=== PATIENT | female | born 1960 | race American Indian/Alaskan Native ===

== ENCOUNTER 2017-11-24 12:41 | Emergency (ER) | payer MEDICAID ==
[2017-11-24] MEDS ORDERED: Ketorolac 30 MG/ML SDV ONE (13:09)
[2017-11-24] MEDS ORDERED: Ketorolac 30 MG/ML SDV IM ONE (13:09)
--- NOTE | 2017-11-24 13:13 | EDM.PDOC ---
ED HPI GENERAL MEDICAL PROBLEM - General Chief Complaint: Skin Complaint Stated Complaint: Abscess Time Seen by Provider: 11/24/17 12:55 Source of Information: Reports: Patient History Limitations: Reports: No Limitations - History of Present Illness INITIAL COMMENTS - FREE TEXT/NARRATIVE: Nelia comes to [facility] ED with multiple lesions on the scalp and neck that have been increasing in size, tenderness, and number over the past week. This morning, her face was also swollen and she had difficulty eyelids to see. There is no fever, chills or sweats. She is on Prednisone for Chronic RA. Her clinical exam is consistent with multiple carbuncles. I discussed case with Surgeon business solutions director and he suggested transfer to [facility] for Surgery and ID consults. Patient is in agreement. - Related Data Allergies Allergy/AdvReac Type Severity Reaction Status Date / Time doxycycline Allergy Mild unknown Verified 11/24/17 21:49 Penicillins Allergy Mild Hives Verified 11/24/17 21:49 tramadol Allergy Mild unknown Verified 11/24/17 21:49 venom-honey bee Allergy Mild Anaphylactic Verified 11/24/17 21:49 [bee venom (honey bee)] Shock Home Meds: Home Meds Ranitidine [Zantac] 150 mg PO DAILY PRN 01/25/14 [History] amLODIPine [Norvasc] 10 mg PO DAILY 01/25/14 [History] Aspirin [Aspirin EC] 81 mg PO DAILY 03/26/16 [History] predniSONE [Prednisone] 15 mg PO DAILY 03/26/16 [History] cloNIDine [Catapres] 0.1 mg PO Q12HR PRN #14 tablet 03/27/16 [Rx] Albuterol Sulfate 2 puff INH QID PRN 08/03/16 [History] valACYclovir HCl [valACYclovir] 1,000 mg PO DAILY 08/03/16 [History] Levothyroxine Sodium [Synthroid] 75 mcg PO DAILY 11/24/17 [History] Past Medical History - Past Health History Medical/Surgical History: Denies Medical/Surgical History Cardiovascular History: Reports: Hypertension Gastrointestinal History: Reports: GERD Musculoskeletal History: Reports: RA Psychiatric History: Reports: Addiction Social & Family History - Family History Musculoskeletal: Reports: Arthritis - Tobacco Use Smoking Status *Q: Former Smoker Years of Tobacco use: 20 Used Tobacco, but Quit: Yes Month/Year Tobacco Last Used: november - Alcohol Use Days Per Week of Alcohol Use: 0 - Recreational Drug Use Recreational Drug Use: No Recreational Drug Type: Reports: Morphine ED ROS GENERAL - Review of Systems Review Of Systems: ROS reveals no pertinent complaints other than HPI. ED EXAM, SKIN/RASH Exam: See Below Exam Limited By: No Limitations General Appearance: Alert, WD/WN, Mild Distress Eye Exam: Bilateral Eye: EOMI, Normal Inspection (facial swelling including eyelids), PERRL Ears: Normal External Exam Nose: Normal Inspection Throat/Mouth: Normal Inspection Head: Facial Swelling, Other (multiple complex abscesses of the scalp) Neck: Full Range of Motion, Lymphadenopathy (L), Other (multiple abscesses of neck) Respiratory/Chest: Lungs Clear Cardiovascular: Regular Rate, Rhythm Back Exam: Normal Inspection Extremities: Normal Inspection Neurological: Alert, Oriented, CN II-XII Intact, Normal Gait, No Motor/Sensory Deficits Psychiatric: Normal Affect, Normal Mood Skin: Warm, Dry, Other (multiple abscesses of scalp and neck) Course - Vital Signs Text/Narrative:: I discussed case with dynamics ax consultant surgeon, who suggested referral to [facility]. I spoke with [facility] ED about case and he accepted patient for surgical management. Last Recorded V/S: Last Vital Signs Temp 36.8 C 11/24/17 13:15 Pulse 104 H 11/24/17 13:15 Resp 14 11/24/17 13:15 BP 157/72 H 11/24/17 13:15 Pulse Ox 100 11/24/17 13:15 - Orders/Labs/Meds Meds: Medications Discontinued Medications Generic Name Dose Route Start Last Admin Trade Name Rico PRN Reason Stop Dose Admin Ketorolac Tromethamine 30 mg 11/24/17 13:09 11/24/17 13:13 Toradol IM 11/24/17 13:10 30 mg ONETIME ONE Administration Ketorolac Tromethamine Confirm 11/24/17 13:09 11/24/17 20:30 Toradol Administered 11/24/17 13:10 Not Given Dose 30 mg .ROUTE .STK-MED ONE Departure - Departure Time of Disposition: 12:45 Disposition: DC/Tfer to Other 70 Condition: Fair Clinical Impression: Carbuncle of scalp - Discharge Information Referrals: Kenn Cheng MD [Primary Care Provider] - Forms: ED Department Discharge Care Plan Goals: Report directly to the Emergency Room at [facility] in [place]. Dr. Orozco is aware that you are coming. - Problem List & Annotations (1) Carbuncle of scalp SNOMED Code(s): 14009697 Code(s): L02.831 - CARBUNCLE OF HEAD [ANY PART, EXCEPT FACE] Status: Acute Annotation/Comment:: Nelia has multiple carbuncles of the scalp and neck. She will be referred to [facility] ED for surgical and infectious disease consultation. She was administered Toradol 30 mg IM before departure for comfort. - Problem List Review Problem List Initiated/Reviewed/Updated: Yes - Assessment/Plan Plan: Follow up with PCP.
[2017-11-24 21:13] VITALS: BP 157/72
== END 2017-11-24 13:35 | disposition other institution (70) ==
LOC: FB.ED 12:41
DX: L02.831 Carbuncle of head [any part, except face] (principal); I10 Essential (primary) hypertension; Z88.1 Allergy status to other antibiotic agents; Z88.0 Allergy status to penicillin; Z91.030 Bee allergy status; Z88.5 Allergy status to narcotic agent; Z79.899 Other long term (current) drug therapy; Z79.82 Long term (current) use of aspirin; Z87.891 Personal history of nicotine dependence
CPT/HCPCS: 96372; 99283; J1885

== ENCOUNTER 2017-11-26 21:02 | Inpatient (IN) | payer MEDICAID ==
[2017-11-26] MEDS ORDERED: Potassium Chloride 20 MEQ Tab.ER PO ONE (22:36)
[2017-11-26] MEDS ORDERED: Ondansetron 4 MG/2 ML SDV IVPUSH ONE (22:36)
[2017-11-26] MEDS ORDERED: Morphine 4 MG/ML Syringe IVPUSH ONE (22:38)
[2017-11-26] MEDS ORDERED: Acetaminophen 500 MG Tab PO ONE (22:38)
[2017-11-26] MEDS ORDERED: Ketorolac 30 MG/ML SDV IVPUSH ONE (22:39)
[2017-11-26] MEDS ORDERED: Sodium Chloride 0.45% with KCl 1,000 ML IV SCH (22:45)
--- NOTE | 2017-11-26 22:48 | EDM.PDOC ---
ED HPI GENERAL MEDICAL PROBLEM - General Chief Complaint: Headache Stated Complaint: PAIN AFTER SURGERY Time Seen by Provider: 11/26/17 22:00 Source of Information: Reports: Patient History Limitations: Reports: No Limitations - History of Present Illness INITIAL COMMENTS - FREE TEXT/NARRATIVE: c/o scalp pain pt in ED 2d ago here, had extensive carbuncles on scalp, transferred to [facility], had I&D by surgeon that night culture growing out Staph, final report pending WBC 23k from 2d ago, then 17k yesterday and now 13k today tx with jenniffer, received last dose at noon today, plan was to change her to oral meds and d/c her apparently tomorrow however pt left AMA this afternoon after an argument with her daughter who did not have a ride back to [place], the hospital was going to throw out the daughter but the pt says she felt sorry for her and left AMA to drive her pt back pt lives with a granddaughter (not her daughter) pain in scalp has gotten worse tonight, pt did not get an Rx for oral antibiotics pt says most of her pain is at the back of her neck where she appears to have another abscess which will likely need to be drained by surgeon tomorrow will admit pt to observation bed for IV antbxs (pending final culture result tomorrow), pain management and surgical consult in AM pt agrees head and neck Pain Score (Numeric/FACES): 10 - Related Data Allergies Allergy/AdvReac Type Severity Reaction Status Date / Time doxycycline Allergy Mild unknown Verified 11/26/17 21:21 Penicillins Allergy Mild Hives Verified 11/26/17 21:21 tramadol Allergy Mild unknown Verified 11/26/17 21:21 venom-honey bee Allergy Mild Anaphylactic Verified 11/26/17 21:21 [bee venom (honey bee)] Shock Home Meds: Home Meds amLODIPine [Norvasc] 10 mg PO DAILY 01/25/14 [History] Aspirin [Aspirin EC] 81 mg PO DAILY 03/26/16 [History] predniSONE [Prednisone] 15 mg PO DAILY 03/26/16 [History] Albuterol Sulfate 2 puff INH QID PRN 08/03/16 [History] Levothyroxine Sodium [Synthroid] 75 mcg PO DAILY 11/24/17 [History] ClonazePAM [KlonoPIN] 5 mg PO BID 11/26/17 [History] Past Medical History - Past Health History Medical/Surgical History: Denies Medical/Surgical History Cardiovascular History: Reports: Hypertension Gastrointestinal History: Reports: GERD Musculoskeletal History: Reports: RA Psychiatric History: Reports: Addiction Endocrine/Metabolic History: Reports: Other (See Below) Other Endocrine/Metabolic History: Thyroid problems, not specified. Dermatologic History: Reports: Other (See Below) Other Dermatologic History: Abscess on top of head. - Past Surgical History Female Surgical History: Reports: Section Social & Family History - Family History Family Medical History: Noncontributory Musculoskeletal: Reports: Arthritis - Tobacco Use Smoking Status *Q: Current Every Day Smoker Years of Tobacco use: 10 Packs/Tins Daily: 1 Used Tobacco, but Quit: Yes Month/Year Tobacco Last Used: november - Caffeine Use Caffeine Use: Reports: Coffee - Alcohol Use Days Per Week of Alcohol Use: 0 - Recreational Drug Use Recreational Drug Use: No Recreational Drug Type: Reports: Morphine ED ROS GENERAL - Review of Systems Review Of Systems: See Below Constitutional: Reports: No Symptoms HEENT: Reports: No Symptoms Respiratory: Reports: No Symptoms Cardiovascular: Reports: No Symptoms Endocrine: Reports: No Symptoms GI/Abdominal: Reports: No Symptoms : Reports: No Symptoms Musculoskeletal: Reports: No Symptoms Skin: Reports: Wound Neurological: Reports: Headache Psychiatric: Reports: No Symptoms Hematologic/Lymphatic: Reports: No Symptoms Immunologic: Reports: No Symptoms ED EXAM, SKIN/RASH Exam: See Below Exam Limited By: No Limitations General Appearance: Alert, WD/WN, Mild Distress Eye Exam: Bilateral Eye: Normal Inspection Nose: Normal Inspection, Normal Mucosa, No Blood Throat/Mouth: Normal Inspection, Normal Voice, No Airway Compromise Head: Other (large open wound in midline anteriorly, ~15 cm in length, dry packing inside wound, several other abscess were drained with no packing, scalp dry, hair short, no moisture or active drainage, additional packing laid on scalp was removed as was the stocking cap which was slightly adherent to scalp and which was painful, at neck posteriorly in midline is a 2 x 2 x 0.5 cm red swollen tender area that appears flocculent with an additional 1 x 1 x 0.25 cm inferiorly, no discrete LNs) Neck: Supple Respiratory/Chest: No Respiratory Distress, Lungs Clear, Normal Breath Sounds, No Accessory Muscle Use, Chest Non-Tender Cardiovascular: Normal Peripheral Pulses, Regular Rate, Rhythm, No Edema, No Gallop, No Rub, Other (slight tachy with HR 105, 2/6 BERTRAND at LSB, quiet precordium) GI/Abdominal: Soft, Non-Tender, No Distention Back Exam: Normal Inspection, Full Range of Motion, NT Extremities: Normal Inspection, Normal Range of Motion, Non-Tender, No Pedal Edema Neurological: Alert, Oriented, CN II-XII Intact, Normal Cognition, No Motor/ Sensory Deficits Psychiatric: Normal Affect, Normal Mood Skin: Warm, Dry, Intact, Normal Color, No Rash Lymphatic: No Adenopathy Course - Vital Signs Last Recorded V/S: Last Vital Signs Temp 36.7 C 11/26/17 21:02 Pulse 107 H 11/26/17 21:02 Resp 20 11/26/17 21:02 BP 143/84 H 11/26/17 21:02 Pulse Ox 100 11/26/17 21:02 - Orders/Labs/Meds Orders: Active Orders 24 hr Category Date Time Status Acetaminophen [Tylenol Extra Strength] Med 11/26/17 22:38 Once 1,000 mg PO ONETIME ONE Ketorolac [Toradol] Med 11/26/17 22:39 Once 30 mg IVPUSH ONETIME ONE Morphine Med 11/26/17 22:38 Once 4 mg IVPUSH ONETIME ONE Ondansetron [Zofran] Med 11/26/17 22:36 Once 4 mg IVPUSH ONETIME ONE Potassium Chloride [Klor-Con M20] Med 11/26/17 22:36 Once 40 meq PO ONETIME ONE Sodium Chloride 0.45% with KCl 20 mEq @ 75 mL/Hr (1000 Med 11/26/17 22:45 Ordered mL) Sodium Chloride 0.45% with KCl [1/2 NS with 20 mEq KCl] 1,000 ml IV ASDIRECTED Medication Orders Acetaminophen (Tylenol Extra Strength) 1,000 mg PO ONETIME ONE Stop: 11/26/17 22:39 Potassium Chloride/Sodium Chloride (1/2 Ns With 20 Meq Kcl) 1,000 mls @ 75 mls/ hr IV ASDIRECTED DOMINIK Ketorolac Tromethamine (Toradol) 30 mg IVPUSH ONETIME ONE Stop: 11/26/17 22:40 Morphine Sulfate (Morphine) 4 mg IVPUSH ONETIME ONE Stop: 11/26/17 22:39 Ondansetron HCl (Zofran) 4 mg IVPUSH ONETIME ONE Stop: 11/26/17 22:37 Potassium Chloride (Klor-Con M20) 40 meq PO ONETIME ONE Stop: 11/26/17 22:37 Labs: Laboratory Tests 11/26/17 11/26/17 Range/Units 21:35 21:35 WBC 13.9 H (4.5-12.0) X10-3/uL RBC 4.31 (3.23-5.20) x10(6)uL Hgb 12.3 (11.5-15.5) g/dL Hct 36.7 (30.0-51.3) % MCV 85.0 (80-96) fL MCH 28.6 (27.7-33.6) pg MCHC 33.6 (32.2-35.4) g/dL RDW 13.8 (11.5-15.5) % Plt Count 455 H (125-369) X10(3)uL MPV 6.9 L (7.4-10.4) fL Neut % (Auto) 71.3 (46-82) % Lymph % (Auto) 18.8 (13-37) % Granite % (Auto) 5.3 (4-12) % Eos % (Auto) 1 (1.0-5.0) % Baso % (Auto) 4 H (0-2) % Neut # (Auto) 9.9 H (1.6-8.3) # Lymph # (Auto) 2.6 (0.6-5.0) # Granite # (Auto) 0.7 (0.0-1.3) # Eos # (Auto) 0.2 (0.0-0.8) # Baso # (Auto) 0.5 H (0.0-0.2) # Sodium 140 (135-145) mmol/L Potassium 3.3 L (3.5-5.3) mmol/L Chloride 101 (100-110) mmol/L Carbon Dioxide 31 (21-32) mmol/L BUN 14 (7-18) mg/dL Creatinine 0.9 (0.55-1.02) mg/dL Est Cr Clr Drug Dosing 50.48 mL/min Estimated GFR (MDRD) > 60 (>60) BUN/Creatinine Ratio 15.6 (9-20) Glucose 161 H (80-116) mg/dL Calcium 8.5 L (8.6-10.2) mg/dL Total Bilirubin 0.2 (0.1-1.3) mg/dL AST 14 (5-25) IU/L ALT 21 (12-36) U/L Alkaline Phosphatase 82 (56-112) IU/L Total Protein 6.7 (6.0-8.0) g/dL Albumin 2.7 L (3.5-5.2) g/dL Globulin 4.0 g/dL Albumin/Globulin Ratio 0.7 Meds: Medications Generic Name Dose Route Start Last Admin Trade Name Freq PRN Reason Stop Dose Admin Acetaminophen 1,000 mg 11/26/17 22:38 Tylenol Extra Strength PO 11/26/17 22:39 ONETIME ONE Potassium Chloride/Sodium Chloride 1,000 mls @ 75 mls/hr 11/26/17 22:45 1/2 Ns With 20 Meq Kcl IV ASDIRECTED [facility] Ketorolac Tromethamine 30 mg 11/26/17 22:39 Toradol IVPUSH 11/26/17 22:40 ONETIME ONE Morphine Sulfate 4 mg 11/26/17 22:38 Morphine IVPUSH 11/26/17 22:39 ONETIME ONE Ondansetron HCl 4 mg 11/26/17 22:36 Zofran IVPUSH 11/26/17 22:37 ONETIME ONE Potassium Chloride 40 meq 11/26/17 22:36 Klor-Con M20 PO 11/26/17 22:37 ONETIME ONE Departure - Departure Time of Disposition: 22:52 Disposition: Refer to Observation Condition: Good Clinical Impression: Carbuncle of scalp, Carbuncle of neck, Staphylococcal infection of skin, Immunosuppressed status, Severe pain, Hypokalemia - Discharge Information Referrals: Kenn Cheng MD [Primary Care Provider] - - My Orders Last 24 Hours: My Active Orders 11/26/17 22:36 Ondansetron [Zofran] 4 mg IVPUSH ONETIME ONE Potassium Chloride [Klor-Con M20] 40 meq PO ONETIME ONE 11/26/17 22:38 Acetaminophen [Tylenol Extra Strength] 1,000 mg PO ONETIME ONE Morphine 4 mg IVPUSH ONETIME ONE 11/26/17 22:39 Ketorolac [Toradol] 30 mg IVPUSH ONETIME ONE 11/26/17 22:45 Sodium Chloride 0.45% with KCl 20 mEq @ 75 mL/Hr (1000 mL) Sodium Chloride 0.45 % with KCl [1/2 NS with 20 mEq KCl] 1,000 ml IV ASDIRECTED - Assessment/Plan Last 24 Hours: My Active Orders 11/26/17 22:36 Ondansetron [Zofran] 4 mg IVPUSH ONETIME ONE Potassium Chloride [Klor-Con M20] 40 meq PO ONETIME ONE 11/26/17 22:38 Acetaminophen [Tylenol Extra Strength] 1,000 mg PO ONETIME ONE Morphine 4 mg IVPUSH ONETIME ONE 11/26/17 22:39 Ketorolac [Toradol] 30 mg IVPUSH ONETIME ONE 11/26/17 22:45 Sodium Chloride 0.45% with KCl 20 mEq @ 75 mL/Hr (1000 mL) Sodium Chloride 0.45 % with KCl [1/2 NS with 20 mEq KCl] 1,000 ml IV ASDIRECTED
[2017-11-26] MEDS ORDERED: Morphine 2 MG/ML Syringe IVPUSH PRN (23:01)
[2017-11-26] MEDS ORDERED: Ondansetron 4 MG/2 ML SDV IV PRN (23:01)
[2017-11-26] MEDS ORDERED: Albuterol 0.083% 2.5 MG/3 ML Neb Soln INH PRN (23:09)
[2017-11-26] MEDS ORDERED: Ketorolac 30 MG/ML SDV IVPUSH SCH (23:15)
[2017-11-26] MEDS: Acetaminophen 500 MG Tab PO SCH (23:28)
[2017-11-26] MEDS: Enoxaparin 40 MG/0.4 ML Syringe SUBCUT SCH (23:38)
[2017-11-27] MEDS: Acetaminophen 500 MG Tab PO SCH ×2 (05:48→11:14)
[2017-11-27] MEDS: Ketorolac 30 MG/ML SDV IVPUSH SCH ×2 (05:48→11:14)
[2017-11-27] MEDS: Clindamycin in 0.9 % Sod Chlor 600 MG/50 ML BAG IV SCH (08:20)
[2017-11-27] MEDS ORDERED: ClonazePAM 1 MG Tab PO SCH (09:00)
--- NOTE | 2017-11-27 09:17 | PCM.HP ---
H&P History of Present Illness - General Date of Service: 11/27/17 Admit Problem/Dx: Admission Diagnosis/Problem Admission Diagnosis/Problem Carbuncle Source of Information: Patient, Old Records, Provider History Limitations: Reports: No Limitations - History of Present Illness Initial Comments - Free Text/Narative: Patient is a 57-year-old female with a history of steroid-dependent rheumatoid arthritis currently on prednisone 15 mg daily who about a week and a half prior to admission started to develop some pimple-like lesions on her scalp. She had used a sharp comb and felt like it injured her scalp and then started to develop these pus filled lesions that were like pimples. They were quite large and got to the point where she was bumping them and they were draining. On 11/23 she started to develop fevers, chills, and sweats. She had some facial swelling and when she woke up in the morning of the her face was so swollen she could hardly see out of her eyes. She had no nausea or vomiting, no diarrhea. She just felt very weak and ill. She fell asleep that afternoon and didn't wake up until 4 in the morning on the . At that point she finally realized that she was very sick and needed to come in so tried to find a ride to the emergency department. On the she presented to our emergency room here at [facility], was seen and evaluated for multiple abscesses on the scalp and facial cellulitis. She was transferred to [facility] for surgical management. White count was 23,000 at that time. She had surgical intervention of the large carbuncles on her scalp and cultures showed staph aureus which was pansensitive. She had been initially treated there with IV vancomycin and continued IV vancomycin until 11/26 when because of issues with her daughter, who was hounding her that she needed to leave the hospital in order to take her home , she finally left [place] on late Monday afternoon, 11/26/17. After she got her daughter home she found a ride to the emergency room and came back into our facility knowing that she needed further antibiotic treatment. She was admitted for further management of her soft tissue infection, facial skin infection, and carbuncles. She was started on clindamycin 600 mg IV. She's had no further fevers, chills, sweats. No point did she have any chest pain, shortness of breath, nausea, vomiting, or diarrhea. She does have moderate pain in the scalp where she had surgery but her facial swelling is almost gone. She has a couple of new lesions that recently appeared on the back of her neck. Past medical history: #1 rheumatoid arthritis, steroid dependent. She is on prednisone 50 mg daily. Had planned to start Enbrel in the past but never did because of social issues. #2 mental health history includes depression, anxiety, history of panic disorder , question of history of previous alcohol dependence, currently on a pain contract, significant social stressors. #3 asthma #4 hypothyroidism #5 hypertension #6 history of H. pylori and esophageal reflux #7 insomnia Social history: Patient lives in [place]. She has a daughter, Isai, who is the one who caused so much trouble for her in [facility]. She would like her not to be able to visit while she is here. She has full-time custody of Isai's daughter Gema who is 5 years old and in preschool. Child is currently being cared for by her maternal grandfather while the patient is in the hospital. She has a son who lives in [facility]. She smokes about a half to "a pack of cigarettes per day. Cigarette use is greatly increased when Isai is around. She denies alcohol use or IV or illegal drug use. She is single and she and Gema live together. Family history: Patient's mother at 84 from complications after falling and breaking her hip. She had hypothyroidism, cataracts, and a history of coronary artery disease although no heart problems per se. The patient's father in his 90s after a stroke and had diabetes mellitus. The patient had 4 sisters, 3 of whom are . One sister at the age of 13 of leukemia, one sister of complications of lupus at the age of 48, and her other sister of complications of rheumatoid arthritis at the age of 48. She has a sister who is still alive who lives in [place]. She had 2 brothers both of whom are . One brother at 57 from complications of diabetes and kidney failure. One brother in his 30s from alcoholism. He was apparently assaulted and from injuries related to that. head and neck Pain Score (Numeric/FACES): 10 - Related Data Allergies/Adverse Reactions: Allergies Allergy/AdvReac Type Severity Reaction Status Date / Time doxycycline Allergy Mild unknown Verified 11/26/17 21:21 Penicillins Allergy Mild Hives Verified 11/26/17 21:21 tramadol Allergy Mild unknown Verified 11/26/17 21:21 venom-honey bee Allergy Mild Anaphylactic Verified 11/26/17 21:21 [bee venom (honey bee)] Shock Home Medications: Home Meds amLODIPine [Norvasc] 10 mg PO DAILY 01/25/14 [History] Aspirin [Aspirin EC] 81 mg PO DAILY 03/26/16 [History] predniSONE [Prednisone] 15 mg PO DAILY 03/26/16 [History] Albuterol Sulfate 2 puff INH QID PRN 08/03/16 [History] Levothyroxine Sodium [Synthroid] 75 mcg PO DAILY 11/24/17 [History] ClonazePAM [KlonoPIN] 5 mg PO BID 11/26/17 [History] Past Medical History - Past Health History Medical/Surgical History: Denies Medical/Surgical History HEENT History: Reports: Impaired Vision Other HEENT History: wears glasses but sts they don't help Cardiovascular History: Reports: Hypertension Respiratory History: Reports: COPD Gastrointestinal History: Reports: GERD [employer] History: Reports: Musculoskeletal History: Reports: RA, Other (See Below) Other Musculoskeletal History: has a limp due to right hip disc from RA Psychiatric History: Reports: Addiction Endocrine/Metabolic History: Reports: Other (See Below) Other Endocrine/Metabolic History: Thyroid problems, not specified. Dermatologic History: Reports: Other (See Below) Other Dermatologic History: Abscess on top of head. - Past Surgical History Respiratory Surgical History: Reports: None Female Surgical History: Reports: Section Social & Family History - Family History Family Medical History: Noncontributory Musculoskeletal: Reports: Arthritis - Tobacco Use Smoking Status *Q: Current Every Day Smoker Years of Tobacco use: 20 Packs/Tins Daily: 1 Used Tobacco, but Quit: Yes Month/Year Tobacco Last Used: november Tobacco Use Comment: Wants a nicotine patch Second Hand Smoke Exposure: No - Caffeine Use Caffeine Use: Reports: Coffee Other Caffeine Use: 2 per day - Alcohol Use Days Per Week of Alcohol Use: 0 - Recreational Drug Use Recreational Drug Use: No Recreational Drug Type: Reports: Morphine H&P Review of Systems - Review of Systems: Review Of Systems: ROS reveals no pertinent complaints other than HPI. Exam - Exam Exam: See Below - Vital Signs Vital Signs: Last Vital Signs Temp 36.7 C 11/27/17 05:45 Pulse 67 11/27/17 05:45 Resp 16 11/27/17 05:45 BP 134/77 11/27/17 05:45 Pulse Ox 96 11/27/17 05:45 Weight: 44.407 kg - Exam General: Alert, Oriented, Cooperative HEENT: PERRLA, Conjunctiva Clear, Mucosa Moist & [employer] Neck: Supple Lungs: Clear to Auscultation, Normal Respiratory Effort Cardiovascular: Regular Rate, Regular Rhythm, Normal S1, Normal S2 GI/Abdominal Exam: Normal Bowel Sounds, Soft, Non-Tender, No Distention Extremities: No Pedal Edema Skin: Other (Patient has a packed scalp wound on the anterior scalp about 4-5 cm in length. It has no pus drainage but a yellow base. Multiple small scattered open areas of deroofed carbuncles surrounding. On the posterior scalp and nape of neck she has 2 lesions, one in the hairline which is swollen and tender, one below which still has a yellow head on it. Her eyelids are slightly swollen but no other facial swelling. She has an area under the chin on the upper chest which is slightly erythematous and swollen, but nontender to touch. ) Neuro Extensive - Mental Status: Alert, Oriented x3, Normal Mood/Affect Psychiatric: Alert - Patient Data Lab Results Last 24 hrs: Laboratory Results - last 24 hr 11/26/17 11/26/17 11/27/17 Range/Units 21:35 21:35 06:10 WBC 13.9 H 10.1 (4.5-12.0) X10-3/uL RBC 4.31 4.05 (3.23-5.20) x10(6)uL Hgb 12.3 11.6 (11.5-15.5) g/dL Hct 36.7 34.4 (30.0-51.3) % MCV 85.0 85.0 (80-96) fL MCH 28.6 28.6 (27.7-33.6) pg MCHC 33.6 33.6 (32.2-35.4) g/dL RDW 13.8 13.6 (11.5-15.5) % Plt Count 455 H 449 H (125-369) X10(3)uL MPV 6.9 L 6.9 L (7.4-10.4) fL Neut % (Auto) 71.3 66.6 (46-82) % Lymph % (Auto) 18.8 24.0 (13-37) % Bond % (Auto) 5.3 6.0 (4-12) % Eos % (Auto) 1 3 (1.0-5.0) % Baso % (Auto) 4 H 1 (0-2) % Neut # (Auto) 9.9 H 6.7 (1.6-8.3) # Lymph # (Auto) 2.6 2.4 (0.6-5.0) # Bond # (Auto) 0.7 0.6 (0.0-1.3) # Eos # (Auto) 0.2 0.3 (0.0-0.8) # Baso # (Auto) 0.5 H 0.1 (0.0-0.2) # Sodium 140 (135-145) mmol/L Potassium 3.3 L (3.5-5.3) mmol/L Chloride 101 (100-110) mmol/L Carbon Dioxide 31 (21-32) mmol/L BUN 14 (7-18) mg/dL Creatinine 0.9 (0.55-1.02) mg/dL Est Cr Clr Drug Dosing 50.48 mL/min Estimated GFR (MDRD) > 60 (>60) BUN/Creatinine Ratio 15.6 (9-20) Glucose 161 H (80-116) mg/dL Calcium 8.5 L (8.6-10.2) mg/dL Total Bilirubin 0.2 (0.1-1.3) mg/dL AST 14 (5-25) IU/L ALT 21 (12-36) U/L Alkaline Phosphatase 82 (56-112) IU/L Total Protein 6.7 (6.0-8.0) g/dL Albumin 2.7 L (3.5-5.2) g/dL Globulin 4.0 g/dL Albumin/Globulin Ratio 0.7 11/27/17 Range/Units 06:10 WBC (4.5-12.0) X10-3/uL RBC (3.23-5.20) x10(6)uL Hgb (11.5-15.5) g/dL Hct (30.0-51.3) % MCV (80-96) fL MCH (27.7-33.6) pg MCHC (32.2-35.4) g/dL RDW (11.5-15.5) % Plt Count (125-369) X10(3)uL MPV (7.4-10.4) fL Neut % (Auto) (46-82) % Lymph % (Auto) (13-37) % Bond % (Auto) (4-12) % Eos % (Auto) (1.0-5.0) % Baso % (Auto) (0-2) % Neut # (Auto) (1.6-8.3) # Lymph # (Auto) (0.6-5.0) # Bond # (Auto) (0.0-1.3) # Eos # (Auto) (0.0-0.8) # Baso # (Auto) (0.0-0.2) # Sodium 139 (135-145) mmol/L Potassium 4.6 D (3.5-5.3) mmol/L Chloride 106 D (100-110) mmol/L Carbon Dioxide 29 (21-32) mmol/L BUN 10 (7-18) mg/dL Creatinine 0.7 (0.55-1.02) mg/dL Est Cr Clr Drug Dosing 62.91 mL/min Estimated GFR (MDRD) > 60 (>60) BUN/Creatinine Ratio 14.3 (9-20) Glucose 86 (80-116) mg/dL Calcium 7.9 L (8.6-10.2) mg/dL Total Bilirubin (0.1-1.3) mg/dL AST (5-25) IU/L ALT (12-36) U/L Alkaline Phosphatase (56-112) IU/L Total Protein (6.0-8.0) g/dL Albumin (3.5-5.2) g/dL Globulin g/dL Albumin/Globulin Ratio Result Diagrams: 11/27/17 06:10 11/27/17 06:10 - Problem List (1) Staphylococcal infection of skin SNOMED Code(s): 277586131 ICD Code: L08.9 - LOCAL INFECTION OF THE SKIN AND SUBCUTANEOUS TISSUE, UNSP; B95.8 - UNSP STAPHYLOCOCCUS THE CAUSE OF DISEASES CLASSD ELSR Status: Acute Current Visit: Yes Problem Details: With carbuncles and facial cellulitis, much improved per hx. MSSA by [facility] cultures. Continue IV clindamycin. Patient immunosuppressed and at risk for complications, difficult social situation. (2) Carbuncle of neck SNOMED Code(s): 62709401 ICD Code: L02.13 - CARBUNCLE OF NECK Status: Acute Current Visit: Yes Problem Details: Consult general surgery, Dr. Casey for recommendations regarding management. (3) Carbuncle of scalp SNOMED Code(s): 93400713 ICD Code: L02.831 - CARBUNCLE OF HEAD [ANY PART, EXCEPT FACE] Status: Acute Current Visit: Yes Problem Details: Large wound, in review of [facility] chart since patient was not discharged but rather left AMA no recommendations available for wound management or plan. Dr. Casey to see regarding recommendations for wound management. (4) Immunosuppressed status SNOMED Code(s): 14052487 ICD Code: D89.9 - DISORDER INVOLVING THE IMMUNE MECHANISM, UNSPECIFIED Status: Acute Current Visit: Yes Problem Details: Continue prednisone at outpatient doses. No need for stress dose steroids at this time. (5) Rheumatoid arthritis SNOMED Code(s): 67136999 ICD Code: M06.9 - RHEUMATOID ARTHRITIS, UNSPECIFIED Status: Acute Current Visit: No Problem Details: Continue current prednisone. Qualifiers: Rheumatoid arthritis location: multiple sites Rheumatoid factor presence: with rheumatoid factor Qualified Code(s): M05.79 - Rheumatoid arthritis with rheumatoid factor of multiple sites without organ or systems involvement (6) Tobacco abuse SNOMED Code(s): 640473368 ICD Code: Z72.0 - TOBACCO USE Status: Acute Current Visit: Yes Problem Details: nicotine replacement with patch, lozenges. (7) DVT prophylaxis SNOMED Code(s): 352747794, 275957994 ICD Code: MHT0579 - Status: Acute Current Visit: Yes Problem Details: Ambulation, lovenox. Problem List Initiated/Reviewed/Updated: Yes Orders Last 24hrs: Active Orders 24 hr Category Date Time Status Admission Status [Patient Status] [ADT] Routine ADT 11/27/17 07:25 Active Notify Provider Consults [RC] ASDIRECTED Care 11/26/17 23:06 Active Oxygen Therapy [RC] PRN Care 11/26/17 23:02 Active Up ad Angelica [RC] ASDIRECTED Care 11/26/17 23:01 Active Vital Signs [RC] 04,08,12,16,20,00 Care 11/26/17 23:02 Active Consult to Physician [CONS] Routine Cons 11/27/17 07:00 Ordered 2 Gram Sodium Diet [DIET] Diet 11/27/17 Breakfast Active BASIC METABOLIC PANEL,BMP [CHEM] DAILY Lab 11/28/17 06:00 Ordered BASIC METABOLIC PANEL,BMP [CHEM] DAILY Lab 11/29/17 06:00 Ordered CBC WITH AUTO DIFF [HEME] DAILY Lab 11/28/17 06:00 Ordered Acetaminophen [Tylenol Extra Strength] Med 11/26/17 23:15 Active 1,000 mg PO Q6H Albuterol [Proventil Neb Soln] Med 11/26/17 23:09 Active 2.5 mg INH QID PRN Aspirin [Halfprin] Med 11/27/17 09:00 Active 81 mg PO DAILY Clindamycin in 0.9 % Sod Chlor [Cleocin in NS] Med 11/27/17 08:00 Active 600 mg in 50 ml IV Q8H ClonazePAM [KlonoPIN] Med 11/27/17 09:00 Hold 5 mg PO BID Enoxaparin [Lovenox] Med 11/26/17 23:30 Active 40 mg SUBCUT Q24H Ketorolac [Toradol] Med 11/27/17 06:00 Active 30 mg IVPUSH Q6H Levothyroxine Med 11/27/17 07:30 Active 75 mcg PO ACBREAKFAST Morphine Med 11/26/17 23:01 Active 2 mg IVPUSH Q2H PRN Nicotine [Habitrol] Med 11/27/17 09:00 Active 14 mg TRDERM DAILY Ondansetron [Zofran] Med 11/26/17 23:01 Active 4 mg IV Q4H PRN Sodium Chloride 0.45% with KCl [1/2 NS with 20 mEq KCl] Med 11/26/17 22:45 Active 1,000 ml IV ASDIRECTED amLODIPine [Norvasc] Med 11/27/17 09:00 Active 10 mg PO DAILY predniSONE Med 11/27/17 09:00 Active 15 mg PO DAILY Resuscitation Status Routine Resus Stat 11/26/17 23:01 Ordered Medication Orders Acetaminophen (Tylenol Extra Strength) 1,000 mg PO Q6H [facility] Last Admin: 11/27/17 05:48 Dose: 1,000 mg Admin: 11/26/17 23:28 Dose: Albuterol (Proventil Neb Soln) 2.5 mg INH QID PRN PRN Reason: Dyspnea Amlodipine Besylate (Norvasc) 10 mg PO DAILY [facility] Aspirin (Halfprin) 81 mg PO DAILY [facility] Clonazepam (Klonopin) 5 mg PO BID [facility] Enoxaparin Sodium (Lovenox) 40 mg SUBCUT Q24H [facility] Last Admin: 11/26/17 23:38 Dose: 40 mg Potassium Chloride/Sodium Chloride (1/2 Ns With 20 Meq Kcl) 1,000 mls @ 75 mls/ hr IV ASDIRECTED [facility] Last Admin: 11/26/17 23:11 Dose: 75 mls/hr Clindamycin in 0.9 % Sod Chlor (Cleocin In Ns) 600 mg in 50 mls @ 100 mls/hr IV Q8H [facility] Last Admin: 11/27/17 08:20 Dose: 100 mls/hr Ketorolac Tromethamine (Toradol) 30 mg IVPUSH Q6H [facility] Last Admin: 11/27/17 05:48 Dose: 30 mg Levothyroxine Sodium (Levothyroxine) 75 mcg PO ACBREAKFAST [facility] Morphine Sulfate (Morphine) 2 mg IVPUSH Q2H PRN PRN Reason: Pain (severe 7-10) Nicotine (Habitrol) 14 mg TRDERM DAILY [facility] Ondansetron HCl (Zofran) 4 mg IV Q4H PRN PRN Reason: Nausea/Vomiting Prednisone (Prednisone) 15 mg PO DAILY [facility] Assessment/Plan Comment:: CODE STATUS discussed with the patient. She would want CPR if she were to get so sick that her heart were to stop beating or she were to stop breathing, however she would not want to be kept alive on a ventilator or with feedings artificially if she was not able to return home to independent living. She would want life support to be withdrawn if she were unable to speak for herself. She has 2 family members who were in motor vehicle accidents both of whom are "vegetables" and she would never want to live like that. Encouraged patient to discuss this with her family and complete an advanced healthcare directive.
[2017-11-27] MEDS ORDERED: Nicotine Polacrilex 2 MG Loz Box CHEW PRN (09:55)
[2017-11-27] MEDS: Levothyroxine 75 MCG Tab PO SCH (10:09)
[2017-11-27] MEDS: Nicotine 14 MG/24 Hr Patch TRDERM SCH (10:09)
[2017-11-27] MEDS: Aspirin 81 MG Tab.EC PO SCH (10:09)
[2017-11-27] MEDS: amLODIPine 10 MG Tab PO SCH (10:10)
[2017-11-27] MEDS: predniSONE 5 MG Tab PO SCH (10:10)
[2017-11-27] MEDS: ClonazePAM 0.5 MG Tab PO SCH (11:14)
[2017-11-27] MEDS: Sodium Chloride 0.45% with KCl 1,000 ML IV SCH (13:46)
[2017-11-27] MEDS ORDERED: ClonazePAM 0.5 MG Tab PO SCH (21:00)
[2017-11-28] MEDS ORDERED: Morphine 4 MG/ML Syringe ONE (01:45)
[2017-11-28] MEDS: Sodium Chloride 0.45% with KCl 1,000 ML IV SCH (03:30)
[2017-11-28] MEDS: Clindamycin in 0.9 % Sod Chlor 600 MG/50 ML BAG IV SCH ×3 (04:12→07:59)
[2017-11-28] MEDS: Ketorolac 30 MG/ML SDV IVPUSH SCH ×4 (04:14→11:37)
[2017-11-28] MEDS: Enoxaparin 40 MG/0.4 ML Syringe SUBCUT SCH (04:24)
[2017-11-28] MEDS: ClonazePAM 0.5 MG Tab PO SCH ×2 (04:25→09:36)
[2017-11-28] MEDS: Acetaminophen 500 MG Tab PO SCH ×4 (04:26→11:36)
[2017-11-28] MEDS: Levothyroxine 75 MCG Tab PO SCH (07:57)
[2017-11-28] MEDS ORDERED: Sodium Chloride 0.9% 10 ML Syringe FLUSH PRN (08:14)
[2017-11-28] MEDS: Nicotine 14 MG/24 Hr Patch TRDERM SCH (09:31)
[2017-11-28] MEDS: amLODIPine 10 MG Tab PO SCH (09:33)
[2017-11-28] MEDS: Aspirin 81 MG Tab.EC PO SCH (09:33)
[2017-11-28] MEDS: predniSONE 5 MG Tab PO SCH (09:34)
--- NOTE | 2017-11-28 10:50 | PCM.PN ---
- General Info Date of Service: 11/28/17 Subjective Update: Patient didn't sleep well last night. She had an uncomfortable interaction with staff in the evening with her dressing change and this distressed her all evening so she was unable to sleep. She felt like she should leave AGAINST MEDICAL ADVICE because she was so upset but she decided it was in her best interest to stay. She hasn't had any chest pain, no shortness of breath, no nausea or vomiting, no diarrhea from the antibiotic therapy. Physically she just feels really tired today because of not sleeping last night. - Patient Data Vitals - Most Recent: Last Vital Signs Temp 37.0 C 11/27/17 12:30 Pulse 84 11/27/17 12:30 Resp 20 11/27/17 12:30 BP 151/81 H 11/28/17 09:33 Pulse Ox 96 11/27/17 12:30 Weight - Most Recent: 44.407 kg I&O - Last 24 Hours: Intake & Output 11/27/17 11/28/17 11/28/17 22:59 06:59 14:59 Intake Total 531 Balance 531 Lab Results Last 24 Hours: Laboratory Results - last 24 hr 11/28/17 11/28/17 Range/Units 06:00 06:00 WBC 12.6 H (4.5-12.0) X10-3/uL RBC 4.36 (3.23-5.20) x10(6)uL Hgb 12.6 (11.5-15.5) g/dL Hct 37.2 (30.0-51.3) % MCV 85.2 (80-96) fL MCH 28.9 (27.7-33.6) pg MCHC 34.0 (32.2-35.4) g/dL RDW 14.0 (11.5-15.5) % Plt Count 502 H (125-369) X10(3)uL MPV 7.0 L (7.4-10.4) fL Neut % (Auto) 77.9 (46-82) % Lymph % (Auto) 17.2 (13-37) % [place] % (Auto) 3.3 L (4-12) % Eos % (Auto) 1 (1.0-5.0) % Baso % (Auto) 0 (0-2) % Neut # (Auto) 9.8 H (1.6-8.3) # Lymph # (Auto) 2.2 (0.6-5.0) # [place] # (Auto) 0.4 (0.0-1.3) # Eos # (Auto) 0.2 (0.0-0.8) # Baso # (Auto) 0.0 (0.0-0.2) # Sodium 138 (135-145) mmol/L Potassium 4.5 (3.5-5.3) mmol/L Chloride 103 (100-110) mmol/L Carbon Dioxide 31 (21-32) mmol/L BUN 9 (7-18) mg/dL Creatinine 0.7 (0.55-1.02) mg/dL Est Cr Clr Drug Dosing 62.91 mL/min Estimated GFR (MDRD) > 60 (>60) BUN/Creatinine Ratio 12.9 (9-20) Glucose 88 (80-116) mg/dL Calcium 8.8 (8.6-10.2) mg/dL Med Orders - Current: Current Medications Acetaminophen (Tylenol Extra Strength) 1,000 mg PO Q6H [facility] Last Admin: 11/28/17 05:23 Dose: 1,000 mg Albuterol (Proventil Neb Soln) 2.5 mg INH QID PRN PRN Reason: Dyspnea Amlodipine Besylate (Norvasc) 10 mg PO DAILY [facility] Last Admin: 11/28/17 09:33 Dose: 10 mg Aspirin (Halfprin) 81 mg PO DAILY [facility] Last Admin: 11/28/17 09:33 Dose: 81 mg Clonazepam (Klonopin) 0.5 mg PO BID [facility] Last Admin: 11/28/17 09:36 Dose: 0.5 mg Enoxaparin Sodium (Lovenox) 40 mg SUBCUT Q24H [facility] Last Admin: 11/28/17 04:24 Dose: Not Given Clindamycin in 0.9 % Sod Chlor (Cleocin In Ns) 600 mg in 50 mls @ 100 mls/hr IV Q8H [facility] Last Admin: 11/28/17 07:59 Dose: 100 mls/hr Ketorolac Tromethamine (Toradol) 30 mg IVPUSH Q6H [facility] Stop: 12/02/17 04:00 Last Admin: 11/28/17 05:25 Dose: 30 mg Levothyroxine Sodium (Levothyroxine) 75 mcg PO ACBREAKFAST [facility] Last Admin: 11/28/17 07:57 Dose: 75 mcg Morphine Sulfate (Morphine) 2 mg IVPUSH Q2H PRN PRN Reason: Pain (severe 7-10) Nicotine (Habitrol) 14 mg TRDERM DAILY [facility] Last Admin: 11/28/17 09:31 Dose: 14 mg Nicotine Polacrilex (Commit) 2 mg CHEW Q1H PRN PRN Reason: tobacco abuse Ondansetron HCl (Zofran) 4 mg IV Q4H PRN PRN Reason: Nausea/Vomiting Prednisone (Prednisone) 15 mg PO DAILY [facility] Last Admin: 11/28/17 09:34 Dose: 15 mg Sodium Chloride (Saline Flush) 10 ml FLUSH ASDIRECTED PRN PRN Reason: Keep Vein Open Discontinued Medications Acetaminophen (Tylenol Extra Strength) 1,000 mg PO ONETIME ONE Stop: 11/26/17 22:39 Last Admin: 11/26/17 22:56 Dose: 1,000 mg Potassium Chloride/Sodium Chloride (1/2 Ns With 20 Meq Kcl) 1,000 mls @ 75 mls/ hr IV ASDIRECTED [facility] Last Admin: 11/26/17 23:11 Dose: 75 mls/hr Clindamycin Phosphate 600 mg/ (Sodium Chloride) 54 mls @ 150 mls/hr IV Q8H [facility] Last Admin: 11/26/17 23:40 Dose: 150 mls/hr Clindamycin Phosphate 600 mg/ (Sodium Chloride) 54 mls @ 150 mls/hr IV Q8H [facility] Last Admin: 11/28/17 04:22 Dose: Not Given Potassium Chloride/Sodium Chloride (1/2 Ns With 20 Meq Kcl) 1,000 mls @ 75 mls/ hr IV Q13H [facility] Last Admin: 11/28/17 03:30 Dose: 75 mls/hr Ketorolac Tromethamine (Toradol) 30 mg IVPUSH ONETIME ONE Stop: 11/26/17 22:40 Last Admin: 11/26/17 22:55 Dose: 30 mg Ketorolac Tromethamine (Toradol) 30 mg IVPUSH Q6H [facility] Last Admin: 11/26/17 23:27 Dose: Not Given Morphine Sulfate (Morphine) 4 mg IVPUSH ONETIME ONE Stop: 11/26/17 22:39 Last Admin: 11/26/17 22:56 Dose: 4 mg Morphine Sulfate (Morphine) Confirm Administered Dose 4 mg .ROUTE .STK-MED ONE Stop: 11/28/17 01:46 Last Admin: 11/28/17 04:23 Dose: Not Given Ondansetron HCl (Zofran) 4 mg IVPUSH ONETIME ONE Stop: 11/26/17 22:37 Last Admin: 11/26/17 22:56 Dose: 4 mg Potassium Chloride (Klor-Con M20) 40 meq PO ONETIME ONE Stop: 11/26/17 22:37 Last Admin: 11/26/17 22:56 Dose: 40 meq - Exam General: Alert, Oriented, Cooperative, Mild Distress (Tearful when speaking of her experience last night with the dressing change.) HEENT: Pupils Equal, Pupils Reactive, Other (lids continue to be slightly swollen.) Neck: Supple, Other (on posterior neck the two lesions present have changed. the lower lesion is now scabbed over and no longer inflamed. the upper lesion, however, is more swollen and has pus drainage. I was able to swab this and then express the rest of the contents gently, cleaned it and left open to air. ) Lungs: Clear to Auscultation, Normal Respiratory Effort Cardiovascular: Regular Rate, Regular Rhythm, No Murmurs GI/Abdominal Exam: Normal Bowel Sounds, Soft, Non-Tender, No Distention Extremities: No Pedal Edema Psy/Mental Status: Alert - Problem List & Annotations (1) Staphylococcal infection of skin SNOMED Code(s): 311851428 Code(s): L08.9 - LOCAL INFECTION OF THE SKIN AND SUBCUTANEOUS TISSUE, UNSP; B95.8 - UNSP STAPHYLOCOCCUS THE CAUSE OF DISEASES CLASSD ELSWHR Status: Acute Current Visit: Yes Annotation/Comment:: With carbuncles and facial cellulitis, much improved per hx. MSSA by [place] cultures. Continue IV clindamycin. Patient immunosuppressed and at risk for complications, difficult social situation. Will consult with home health to assist in dressing changes. Would suggest discharge tomorrow if continues to improve. Although total white count up a little today, her neutrophils are less than yesterday. Will plan to discharge home on Bactrim DS for a total of 10 days of therapy. Stressed importance of wound care for complete healing. Started antibiotics on 11/24/17. (2) Carbuncle of neck SNOMED Code(s): 09917508 Code(s): L02.13 - CARBUNCLE OF NECK Status: Acute Current Visit: Yes Annotation/Comment:: Dr. Casey for saw yesterday re: recommendations regarding management. No note available but verbal recommendations for no further surgical intervention, TID wet to dry dressing with daily showers and soap and water cleansing of all lesions and the scalp wound. Wash with soap and water with dressing change as well. As the neck lesion was draining, I did clean this today and sent the pus for culture to insure same organism without resistance. (3) Carbuncle of scalp SNOMED Code(s): 33771115 Code(s): L02.831 - CARBUNCLE OF HEAD [ANY PART, EXCEPT FACE] Status: Acute Current Visit: Yes Annotation/Comment:: See above. (4) Immunosuppressed status SNOMED Code(s): 26369201 Code(s): D89.9 - DISORDER INVOLVING THE IMMUNE MECHANISM, UNSPECIFIED Status: Acute Current Visit: Yes Annotation/Comment:: Continue prednisone at outpatient doses. No need for stress dose steroids at this time. (5) Rheumatoid arthritis SNOMED Code(s): 92509451 Code(s): M06.9 - RHEUMATOID ARTHRITIS, UNSPECIFIED Status: Acute Current Visit: No Qualifiers: Rheumatoid arthritis location: multiple sites Rheumatoid factor presence: with rheumatoid factor Qualified Code(s): M05.79 - Rheumatoid arthritis with rheumatoid factor of multiple sites without organ or systems involvement Annotation/Comment:: Continue current prednisone. (6) Tobacco abuse SNOMED Code(s): 115530456 Code(s): Z72.0 - TOBACCO USE Status: Acute Current Visit: Yes Annotation/Comment:: nicotine replacement with patch, lozenges. (7) DVT prophylaxis SNOMED Code(s): 407989539, 180046129 Code(s): GNW9061 - Status: Acute Current Visit: Yes Annotation/Comment :: Ambulation, lovenox. - Problem List Review Problem List Initiated/Reviewed/Updated: Yes - My Orders Last 24 Hours: My Active Orders 11/27/17 09:55 Nicotine Polacrilex [Commit] 2 mg CHEW Q1H PRN 11/27/17 09:59 Communication Order [RC] STAT 11/27/17 10:21 Dressing Change [Wound Care] [RC] INTERMITTENT 11/27/17 10:25 Shower [May Shower] [RC] DAILY 11/27/17 10:30 ClonazePAM [KlonoPIN] 0.5 mg PO BID 11/28/17 08:14 Sodium Chloride 0.9% [Saline Flush] 10 ml FLUSH ASDIRECTED PRN Saline Lock Insert [OM.PC] Routine 11/28/17 10:41 CULTURE ROUTINE + SMEAR [RM] Routine 11/29/17 05:11 CBC WITH AUTO DIFF [HEME] AM COMPREHENSIVE METABOLIC PN,CMP [CHEM] AM - Plan Plan:: CODE STATUS discussed with the patient. She would want CPR if she were to get so sick that her heart were to stop beating or she were to stop breathing, however she would not want to be kept alive on a ventilator or with feedings artificially if she was not able to return home to independent living. She would want life support to be withdrawn if she were unable to speak for herself. She has 2 family members who were in motor vehicle accidents both of whom are "vegetables" and she would never want to live like that. Encouraged patient to discuss this with her family and complete an advanced healthcare directive.
--- NOTE | 2017-11-28 12:42 | CONS ---
DATE OF CONSULTATION: 11/27/2017 SURGICAL CONSULTATION HISTORY OF PRESENT ILLNESS: This 57-year-old female is seen today in consultation at the request of Dr. Cobb. This patient presented to the hospital 3 days ago with multiple scalp abscesses and facial swelling. She was sent to [place], where incision and drainage of a scalp abscess was performed. Cultures identified Staph organisms, and the patient was placed on antibiotics. She left the [facility] after less than 2 days there and, later that same day, presented to the local hospital here because she was not feeling well. She does have a history of immunocompromise and assessment for care of her wounds is requested. Examination of the scalp today shows minimal residual forehead and facial swelling. The patient has an open wound in the mid anterior portion of her scalp, approximately 8 x 3 cm in size. The base of this wound shows granulation tissue over much of the area, although there are some superficial areas of necrotic tissue posteriorly. Several other small abscesses are identified on the scalp and the posterior portion of the neck. These range from small pustules with slight erythema in the posterior aspect of her neck to areas that have already broken open and drained on her scalp. No areas of fluctuance are identified at this time. RECOMMENDATIONS: Agree with continued antibiotic therapy, as directed by cultures and sensitivity. Encouraged the patient to wash her scalp with soap and water or even chlorhexidine at least daily and would apply saline wet-to-dry dressings on the open scalp wound t.i.d. Thank you for allowing to me see this patient. /[id number] [place]
[2017-11-28 14:33] VITALS: BP 146/74
--- NOTE | 2017-11-28 15:01 | PCM.DCSUM1 ---
Discharge Summary - Hospital Course Free Text/Narrative:: Date of admission: 12/07/17 Date of discharge: 11/28/17, discharge was against my recommendation. Patient initially eloped and then returned for instructions. Diagnosis on admission: Carbuncle infection status post incision and drainage. Infected with MSSA. Left AMA from [facility]. Diagnosis on discharge: Same. Consults: Gen. surgery for recommendations regarding wound management. Procedures: None History of present illness: Patient is a 57-year-old female with a history of steroid-dependent rheumatoid arthritis currently on prednisone 15 mg daily who about a week and a half prior to admission started to develop some pimple-like lesions on her scalp. She had used a sharp comb and felt like it injured her scalp and then started to develop these pus filled lesions that were like pimples. They were quite large and got to the point where she was bumping them and they were draining. On 11/23 she started to develop fevers, chills, and sweats. She had some facial swelling and when she woke up in the morning of the her face was so swollen she could hardly see out of her eyes. She had no nausea or vomiting, no diarrhea. She just felt very weak and ill. She fell asleep that afternoon and didn't wake up until 4 in the morning on the . At that point she finally realized that she was very sick and needed to come in so tried to find a ride to the emergency department. On the she presented to our emergency room here at [place], was seen and evaluated for multiple abscesses on the scalp and facial cellulitis. She was transferred to [place] for surgical management. White count was 23,000 at that time. She had surgical intervention of the large carbuncles on her scalp and cultures showed staph aureus which was pansensitive. She had been initially treated there with IV vancomycin and continued IV vancomycin until 11/26 when because of issues with her adult daughter she left AM on late Monday afternoon, 11/26/17. After she got her daughter home from [place] she found a ride to the emergency room and came back into our facility knowing that she needed further antibiotic treatment. She was admitted for further management of her soft tissue infection, facial skin infection, and carbuncles. She was started on clindamycin 600 mg IV. Hospital course: Initial treatment went well. Patient responded well to IV clindamycin. Unfortunately on the day of discharge the patient after having discussed a plan to discharge the following day, had an argument with her significant other in the room and eloped from the building. She was gone for about 2 hours. We asked law-enforcement to try to find her to do welfare check and her significant other was also given a message that if she returned we would give her instructions and try to set up home care for her. She finally returned for instructions, dressing change, and her personal belongings. See below for further details as to course by problem. Discharge instructions: Discharge to home. Home health to follow daily for help with dressing changes. Patient should be doing 3 times a day wet-to-dry dressing changes. One with shower and wash with soap and water and make sure describe all lesions and gently wash the scalp incision. The other 2 dressing changes the scalp incision should be gently wash with soap and water and dressed with wet-to-dry normal saline until healed. The other details can be dressed with nonstick Telfa gauze. Follow-up with her primary care provider on Monday. - Discharge Data Discharge Date: 11/28/17 (See progress note from same day as to details of condition at discharge.) Discharge Disposition: Home, W Home Health Agency Condition: Stable - Discharge Diagnosis/Problem(s) (1) Staphylococcal infection of skin SNOMED Code(s): 320218697 ICD Code: L08.9 - LOCAL INFECTION OF THE SKIN AND SUBCUTANEOUS TISSUE, UNSP; B95.8 - UNSP STAPHYLOCOCCUS THE CAUSE OF DISEASES CLASSD ELSWHR Status: Acute Current Visit: Yes Problem Details: With carbuncles and facial cellulitis, much improved per hx. MSSA by [place] cultures. Patient eloped earlier today after an argument with her significant other. She returned for instructions and dressing information but is unwilling to stay any longer. We' ll discharge on Bactrim DS 1 tab by mouth twice a day through 12/03/17. First dose tonight. Follow-up with PCP in 3 days at the clinic. (2) Carbuncle of neck SNOMED Code(s): 91450620 ICD Code: L02.13 - CARBUNCLE OF NECK Status: Acute Current Visit: Yes Problem Details: Dr. Casey for saw yesterday re: recommendations regarding management. No note available but verbal recommendations for no further surgical intervention, TID wet to dry dressing with daily showers and soap and water cleansing of all lesions and the scalp wound. Wash with soap and water with dressing change as well. As the neck lesion was draining, I did clean this today and sent the pus for culture to insure same organism without resistance. (3) Carbuncle of scalp SNOMED Code(s): 81590517 ICD Code: L02.831 - CARBUNCLE OF HEAD [ANY PART, EXCEPT FACE] Status: Acute Current Visit: Yes Problem Details: See above. (4) Immunosuppressed status SNOMED Code(s): 05015538 ICD Code: D89.9 - DISORDER INVOLVING THE IMMUNE MECHANISM, UNSPECIFIED Status: Acute Current Visit: Yes Problem Details: Continue prednisone at outpatient doses. No need for stress dose steroids at this time. (5) Rheumatoid arthritis SNOMED Code(s): 43440454 ICD Code: M06.9 - RHEUMATOID ARTHRITIS, UNSPECIFIED Status: Acute Current Visit: No Problem Details: Continue current prednisone. Qualifiers: Rheumatoid arthritis location: multiple sites Rheumatoid factor presence: with rheumatoid factor Qualified Code(s): M05.79 - Rheumatoid arthritis with rheumatoid factor of multiple sites without organ or systems involvement (6) Tobacco abuse SNOMED Code(s): 789424443 ICD Code: Z72.0 - TOBACCO USE Status: Acute Current Visit: Yes Problem Details: nicotine replacement with patch, lozenges. (7) DVT prophylaxis SNOMED Code(s): 727474188, 411459151 ICD Code: QFO3261 - Status: Acute Current Visit: Yes Problem Details: Ambulation, lovenox. - Patient Summary/Data Consults: Consultations 11/27/17 07:00 Consult to Physician [CONS] Routine Consulting Provider: José Hirsch Call Completed to Consulting Physician: surgeon - Patient Instructions Diet: Heart Healthy Diet Other/Special Instructions: It is very important that you keep your wound clean and dressed. It is very important that you wash daily with soap and water on your lesions on your head and neck. You will need to follow up this week with your primary care provider in the clinic. It is very important that you take your antibiotics morning and night until gone. - Discharge Plan Prescriptions/Med Rec: Nicotine [Habitrol] 14 mg TRDERM DAILY #28 patch Nicotine Polacrilex [Commit] 2 mg CHEW Q1H PRN #1 box PRN Reason: tobacco abuse Sulfamethoxazole/Trimethoprim [Bactrim Ds Tablet] 1 each PO BID #11 tablet Home Medications: Home Meds amLODIPine [Norvasc] 10 mg PO DAILY 01/25/14 [History] Aspirin [Aspirin EC] 81 mg PO DAILY 03/26/16 [History] predniSONE [Prednisone] 15 mg PO DAILY 03/26/16 [History] Albuterol Sulfate 2 puff INH QID PRN 08/03/16 [History] Levothyroxine Sodium [Synthroid] 75 mcg PO DAILY 11/24/17 [History] ClonazePAM [KlonoPIN] 0.5 mg PO BID 11/27/17 [History] Nicotine Polacrilex [Commit] 2 mg CHEW Q1H PRN #1 box 11/28/17 [Rx] Nicotine [Habitrol] 14 mg TRDERM DAILY #28 patch 11/28/17 [Rx] Sulfamethoxazole/Trimethoprim [Bactrim Ds Tablet] 1 each PO BID #11 tablet 11/28 [Rx] Forms: ED Department Discharge Referrals: Kenn Cheng MD [Primary Care Provider] - - Patient Data Vitals - Most Recent: Last Vital Signs Temp 37.0 C 11/28/17 12:15 Pulse 75 11/28/17 12:15 Resp 18 11/28/17 12:15 BP 146/74 H 11/28/17 12:15 Pulse Ox 97 11/28/17 12:15 Weight - Most Recent: 44.407 kg I&O - Last 24 hours: Intake & Output 11/27/17 11/28/17 11/28/17 22:59 06:59 14:59 Intake Total 531 220 Balance 531 220 Lab Results - Last 24 hrs: Laboratory Results - last 24 hr 11/28/17 11/28/17 Range/Units 06:00 06:00 WBC 12.6 H (4.5-12.0) X10-3/uL RBC 4.36 (3.23-5.20) x10(6)uL Hgb 12.6 (11.5-15.5) g/dL Hct 37.2 (30.0-51.3) % MCV 85.2 (80-96) fL MCH 28.9 (27.7-33.6) pg MCHC 34.0 (32.2-35.4) g/dL RDW 14.0 (11.5-15.5) % Plt Count 502 H (125-369) X10(3)uL MPV 7.0 L (7.4-10.4) fL Neut % (Auto) 77.9 (46-82) % Lymph % (Auto) 17.2 (13-37) % [place] % (Auto) 3.3 L (4-12) % Eos % (Auto) 1 (1.0-5.0) % Baso % (Auto) 0 (0-2) % Neut # (Auto) 9.8 H (1.6-8.3) # Lymph # (Auto) 2.2 (0.6-5.0) # [place] # (Auto) 0.4 (0.0-1.3) # Eos # (Auto) 0.2 (0.0-0.8) # Baso # (Auto) 0.0 (0.0-0.2) # Sodium 138 (135-145) mmol/L Potassium 4.5 (3.5-5.3) mmol/L Chloride 103 (100-110) mmol/L Carbon Dioxide 31 (21-32) mmol/L BUN 9 (7-18) mg/dL Creatinine 0.7 (0.55-1.02) mg/dL Est Cr Clr Drug Dosing 62.91 mL/min Estimated GFR (MDRD) > 60 (>60) BUN/Creatinine Ratio 12.9 (9-20) Glucose 88 (80-116) mg/dL Calcium 8.8 (8.6-10.2) mg/dL Med Orders - Current: Current Medications Acetaminophen (Tylenol Extra Strength) 1,000 mg PO Q6H [facility] Last Admin: 11/28/17 11:36 Dose: 1,000 mg Albuterol (Proventil Neb Soln) 2.5 mg INH QID PRN PRN Reason: Dyspnea Amlodipine Besylate (Norvasc) 10 mg PO DAILY [facility] Last Admin: 11/28/17 09:33 Dose: 10 mg Aspirin (Halfprin) 81 mg PO DAILY [facility] Last Admin: 11/28/17 09:33 Dose: 81 mg Clonazepam (Klonopin) 0.5 mg PO BID [facility] Last Admin: 11/28/17 09:36 Dose: 0.5 mg Enoxaparin Sodium (Lovenox) 40 mg SUBCUT Q24H [facility] Last Admin: 11/28/17 04:24 Dose: Not Given Clindamycin in 0.9 % Sod Chlor (Cleocin In Ns) 600 mg in 50 mls @ 100 mls/hr IV Q8H [facility] Last Admin: 11/28/17 07:59 Dose: 100 mls/hr Ketorolac Tromethamine (Toradol) 30 mg IVPUSH Q6H [facility] Stop: 12/02/17 04:00 Last Admin: 11/28/17 11:37 Dose: 30 mg Levothyroxine Sodium (Levothyroxine) 75 mcg PO ACBREAKFAST [facility] Last Admin: 11/28/17 07:57 Dose: 75 mcg Morphine Sulfate (Morphine) 2 mg IVPUSH Q2H PRN PRN Reason: Pain (severe 7-10) Nicotine (Habitrol) 14 mg TRDERM DAILY [facility] Last Admin: 11/28/17 09:31 Dose: 14 mg Nicotine Polacrilex (Commit) 2 mg CHEW Q1H PRN PRN Reason: tobacco abuse Ondansetron HCl (Zofran) 4 mg IV Q4H PRN PRN Reason: Nausea/Vomiting Prednisone (Prednisone) 15 mg PO DAILY [facility] Last Admin: 11/28/17 09:34 Dose: 15 mg Sodium Chloride (Saline Flush) 10 ml FLUSH ASDIRECTED PRN PRN Reason: Keep Vein Open Last Admin: 11/28/17 11:37 Dose: 10 ml Discontinued Medications Acetaminophen (Tylenol Extra Strength) 1,000 mg PO ONETIME ONE Stop: 11/26/17 22:39 Last Admin: 11/26/17 22:56 Dose: 1,000 mg Potassium Chloride/Sodium Chloride (1/2 Ns With 20 Meq Kcl) 1,000 mls @ 75 mls/ hr IV ASDIRECTED [facility] Last Admin: 11/26/17 23:11 Dose: 75 mls/hr Clindamycin Phosphate 600 mg/ (Sodium Chloride) 54 mls @ 150 mls/hr IV Q8H [facility] Last Admin: 11/26/17 23:40 Dose: 150 mls/hr Clindamycin Phosphate 600 mg/ (Sodium Chloride) 54 mls @ 150 mls/hr IV Q8H [facility] Last Admin: 11/28/17 04:22 Dose: Not Given Potassium Chloride/Sodium Chloride (1/2 Ns With 20 Meq Kcl) 1,000 mls @ 75 mls/ hr IV Q13H [facility] Last Admin: 11/28/17 03:30 Dose: 75 mls/hr Ketorolac Tromethamine (Toradol) 30 mg IVPUSH ONETIME ONE Stop: 11/26/17 22:40 Last Admin: 11/26/17 22:55 Dose: 30 mg Ketorolac Tromethamine (Toradol) 30 mg IVPUSH Q6H [facility] Last Admin: 11/26/17 23:27 Dose: Not Given Morphine Sulfate (Morphine) 4 mg IVPUSH ONETIME ONE Stop: 11/26/17 22:39 Last Admin: 11/26/17 22:56 Dose: 4 mg Morphine Sulfate (Morphine) Confirm Administered Dose 4 mg .ROUTE .STK-MED ONE Stop: 11/28/17 01:46 Last Admin: 11/28/17 04:23 Dose: Not Given Ondansetron HCl (Zofran) 4 mg IVPUSH ONETIME ONE Stop: 11/26/17 22:37 Last Admin: 11/26/17 22:56 Dose: 4 mg Potassium Chloride (Klor-Con M20) 40 meq PO ONETIME ONE Stop: 11/26/17 22:37 Last Admin: 11/26/17 22:56 Dose: 40 meq
== END 2017-11-28 15:25 | disposition home health service (06) | DRG 603 ==
LOC: FB.ED 21:02 → FB.MS 22:40 → OBSVTOIN 11-27 07:25
PROVIDERS: ADMIT Emergency Medicine; ATTEND Family Medicine
DX: L02.831 Carbuncle of head [any part, except face] (principal); L02.13 Carbuncle of neck; B95.8 Unspecified staphylococcus as the cause of diseases classified elsewhere; I10 Essential (primary) hypertension; F17.210 Nicotine dependence, cigarettes, uncomplicated; M05.79 Rheumatoid arthritis with rheumatoid factor of multiple sites without organ or systems involvement; D89.9 Disorder involving the immune mechanism, unspecified; Z87.898 Personal history of other specified conditions; E03.9 Hypothyroidism, unspecified; F32.9 Major depressive disorder, single episode, unspecified; F41.9 Anxiety disorder, unspecified; F41.0 Panic disorder [episodic paroxysmal anxiety]; J44.9 Chronic obstructive pulmonary disease, unspecified; H54.7 Unspecified visual loss; Z79.82 Long term (current) use of aspirin; Z79.52 Long term (current) use of systemic steroids; Z88.1 Allergy status to other antibiotic agents; Z91.030 Bee allergy status; Z88.0 Allergy status to penicillin; Z88.8 Allergy status to other drugs, medicaments and biological substances
CPT/HCPCS: 16020; 36415; 80048; 80053; 85025; 87070; 87077; 87205; 96374; 96375; 99283; A9270-GY; J1650; J1885; J2270; J2405; J3480; J3490; J7050; S0077

== ENCOUNTER 2019-02-23 11:47 | Emergency (ER) | payer MEDICARE, MEDICAID ==
[2019-02-23] MEDS ORDERED: Gentamicin 0.3% Ophth Soln 5 ML Bottle ONE (11:48)
[2019-02-23] MEDS ORDERED: Hydrocortisone/Neomycin/Polymyxin B Otic Susp 10 ML Bottle ONE (11:48)
[2019-02-23 12:11] VITALS: BP 148/81; PULSE 83
[2019-02-23] MEDS ORDERED: Hydrocortisone/Neomycin/Polymyxin B Otic Susp 10 ML Bottle EARRT ONE (12:27)
[2019-02-23] MEDS ORDERED: Gentamicin 0.3% Ophth Soln 5 ML Bottle EYERT STA (12:28)
--- NOTE | 2019-02-23 12:31 | EDM.PDOC ---
ED HPI GENERAL MEDICAL PROBLEM - General Chief Complaint: ENT Problem Stated Complaint: EYEBALLS SWELLING, ARTHRITIS PAIN Time Seen by Provider: 02/23/19 11:47 Source of Information: Reports: Patient, Family History Limitations: Reports: No Limitations - History of Present Illness INITIAL COMMENTS - FREE TEXT/NARRATIVE: 58 y.o.w.f. came to the ed one week after she was seen by her PMD for right ear and eye infection. Pt has RA as well. Pt stated she has no money to by her meds and came to the ED for that reason. Visual acuity right eye 20/30 left eye 20/ 50 (correct). Pt takes currently daily 20 mg of Prednisone for her RA. Pt ran out of those medication as well. No other acute med issues. BP 148/81 RR 18 Pulse ox 98% on RA Pulse 83 Temp 36.7 Onset Date: 02/16/19 Onset Time: 08:00 Duration: Day(s):, Week(s):, Intermittent Location: Reports: Face Quality: Reports: Ache, Dull Severity: Moderate Improves with: Reports: Medication Worsens with: Reports: None Context: Reports: Other (OM and conjuctivitis Dx'd 1 weeks ago.) Associated Symptoms: Reports: Other (H/O RA) right ear Pain Score (Numeric/FACES): 5 - Related Data Allergies Allergy/AdvReac Type Severity Reaction Status Date / Time doxycycline Allergy Mild unknown Verified 02/23/19 12:06 Penicillins Allergy Mild Hives Verified 02/23/19 12:06 tramadol Allergy Mild unknown Verified 02/23/19 12:06 venom-honey bee Allergy Mild Anaphylactic Verified 02/23/19 12:06 [bee venom (honey bee)] Shock Home Meds: Home Meds amLODIPine [Norvasc] 10 mg PO DAILY 01/25/14 [History] Aspirin [Aspirin EC] 81 mg PO Q48H 03/26/16 [History] predniSONE [Prednisone] 15 mg PO DAILY 03/26/16 [History] Albuterol Sulfate 2 puff INH QID PRN 08/03/16 [History] Levothyroxine Sodium [Synthroid] 75 mcg PO DAILY 11/24/17 [History] Fluticasone Propionate [Flonase] 2 spray .XX DAILY 05/14/18 [History] Ketorolac [Acular LS 0.4% Ophth Soln] 1 drop EYEBOTH TID #1 bottle 07/12/18 [Rx] Loratadine [Allergy] 10 mg PO DAILY #30 tablet 07/12/18 [Rx] Ofloxacin [Ocuflox 0.3% Ophth Soln] 1 drop EYEBOTH DAILY 07/12/18 [History] predniSONE 5 mg PO DAILY #20 tablet 02/23/19 [Rx] Past Medical History - Past Health History Medical/Surgical History: Denies Medical/Surgical History HEENT History: Reports: Impaired Vision Other HEENT History: wears glasses but sts they don't help Cardiovascular History: Reports: Hypertension Respiratory History: Reports: Asthma, COPD Gastrointestinal History: Reports: GERD PUBLIC RELATIONS History: Reports: Other PUBLIC RELATIONS History: Musculoskeletal History: Reports: Fracture, RA, Other (See Below) Other Musculoskeletal History: 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 Dermatologic History: Reports: Other (See Below) Other Dermatologic History: Abscess on top of head. - Infectious Disease History Infectious Disease History: Reports: Chicken Pox, Measles, Mumps - Past Surgical History Head Surgeries/Procedures: Reports: None HEENT Surgical History: Reports: Oral Surgery Respiratory Surgical History: Reports: None Female Surgical History: Reports: Section Social & Family History - Family History Family Medical History: Noncontributory Musculoskeletal: Reports: Arthritis - Tobacco Use Smoking Status *Q: Current Every Day Smoker Years of Tobacco use: 30 Packs/Tins Daily: 0.5 - Caffeine Use Caffeine Use: Reports: Coffee, Soda, Tea Other Caffeine Use: 2 per day ED ROS ENT - Review of Systems Review Of Systems: See Below Constitutional: Reports: No Symptoms HEENT: Reports: Ear Pain, Eye Pain Respiratory: Reports: No Symptoms Cardiovascular: Reports: No Symptoms Endocrine: Reports: No Symptoms GI/Abdominal: Reports: No Symptoms : Reports: No Symptoms Musculoskeletal: Reports: No Symptoms Skin: Reports: No Symptoms Neurological: Reports: No Symptoms Psychiatric: Reports: No Symptoms Hematologic/Lymphatic: Reports: No Symptoms Immunologic: Reports: No Symptoms ED EXAM, ENT - Physical Exam Exam: See Below Exam Limited By: No Limitations General Appearance: Alert, WD/WN, Mild Distress Eye Exam: Right Eye: Conjunctival Injection Ears: Canal Swelling Nose: Normal Inspection, Normal Mucousa, No Blood Mouth/Throat: Normal Inspection, Normal Gums, Normal Lips, Normal Oropharynx Head: Atraumatic, Normocephalic Neck: Normal Inspection, Supple, Non-Tender, Full Range of Motion Respiratory/Chest: No Respiratory Distress, Lungs Clear, Normal Breath Sounds Cardiovascular: Normal Peripheral Pulses, Regular Rate, Rhythm, No Edema GI/Abdominal: Normal Bowel Sounds, Soft, Non-Tender, No Organomegaly, No Mass, Pelvis Stable (Female) Exam: Deferred Rectal (Female) Exam: Deferred Back: Normal Inspection, Full Range of Motion Extremities: Normal Inspection, Normal Range of Motion, Non-Tender, Normal Capillary Refill Neurological: Alert, Oriented, CN II-XII Intact, Normal Cognition, Normal Gait Psychiatric: Normal Affect, Normal Mood Skin: Warm, Dry, Intact, Normal Color, No Rash Lymphatic: No Adenopathy Course - Vital Signs Text/Narrative:: 58 y.o.w.f. -smoker-came to the ed one week after she was seen by her PMD for right ear and eye infection. Pt has RA as well. Pt stated she has no money to by her meds and came to the ED for that reason. Visual acuity right eye 20/30 left eye 20/50 (correct). Pt takes currently daily 20 mg of Prednisone for her RA. Pt ran out of those medication as well. No other acute med issues. BP 148/ 81 RR 18 Pulse ox 98% on RA Pulse 83 Temp 36.7 PE: WNWDWF with right ear and right eye discomfort. Labs/imaging: Not indicated Impression: Meds refill, Otitis externa right ear, conjunctivitis right eye. TX: Cortisporin ear drops, Gentamicin eye drops. Prescription of prednisone Reexam: Pt was doing fine in the ED Plan: D/C with instructions Last Recorded V/S: Last Vital Signs Temp 36.3 C 02/23/19 11:47 Pulse 83 02/23/19 11:47 Resp 18 02/23/19 11:47 BP 148/81 H 02/23/19 11:47 Pulse Ox 98 02/23/19 11:47 - Orders/Labs/Meds Meds: Medications Discontinued Medications Generic Name Dose Route Start Last Admin Trade Name Rico PRN Reason Stop Dose Admin Gentamicin Sulfate 0.1 ml 02/23/19 12:28 02/23/19 12:37 Garamycin 0.3% Ophth Soln EYERT 02/23/19 12:29 Not Given TID STA Neomycin/Polymyxin/Hydrocortisone 0.1 ml 02/23/19 12:27 02/23/19 12:36 Cortisporin Otic Susp EARRT 02/23/19 12:28 Not Given ONETIME ONE Departure - Departure Time of Disposition: 12:29 Disposition: Home, Self-Care 01 Condition: Good Clinical Impression: Medication refill - Discharge Information Prescriptions: predniSONE 5 mg PO DAILY #20 tablet Instructions: Ear Drops, Adult, [id number] Referrals: Kenn Cheng MD [Primary Care Provider] - Forms: ED Department Discharge Additional Instructions: Please take the meds as recommended, please f/u, come back if your symptoms get worse acutely
== END 2019-02-23 12:42 | disposition home or self-care (01) ==
LOC: FB.ED 11:47
DX: H10.9 Unspecified conjunctivitis (principal); H60.91 Unspecified otitis externa, right ear; M06.9 Rheumatoid arthritis, unspecified; Z76.0 Encounter for issue of repeat prescription; I10 Essential (primary) hypertension; E03.9 Hypothyroidism, unspecified; F17.210 Nicotine dependence, cigarettes, uncomplicated; Z79.899 Other long term (current) drug therapy; Z79.82 Long term (current) use of aspirin; Z91.030 Bee allergy status; Z88.0 Allergy status to penicillin; Z88.5 Allergy status to narcotic agent; Z98.890 Other specified postprocedural states; Z88.8 Allergy status to other drugs, medicaments and biological substances
CPT/HCPCS: 99282; A9270; 99283

== ENCOUNTER 2019-08-11 16:44 | Emergency (ER) | payer MEDICARE, MEDICAID ==
--- NOTE | 2019-08-11 17:29 | EDM.PDOC ---
ED HPI GENERAL MEDICAL PROBLEM - General Chief Complaint: Respiratory Problem Stated Complaint: POSS BRONCHITIS Time Seen by Provider: 08/11/19 17:25 Source of Information: Reports: Patient History Limitations: Reports: No Limitations - History of Present Illness INITIAL COMMENTS - FREE TEXT/NARRATIVE: Presents with cough and rhinorrhea x 1 week, began to have fever, chills, and body aches today. Denies chest pain or shortness of breath. Patient has a h/o Asthma and COPD. She continues to smoke cigarettes. Patient did not receive the flu shot this season. Duration: Week(s): (1) Severity: Mild - Related Data Allergies Allergy/AdvReac Type Severity Reaction Status Date / Time doxycycline Allergy Mild unknown Verified 02/23/19 12:06 Penicillins Allergy Mild Hives Verified 02/23/19 12:06 tramadol Allergy Mild unknown Verified 02/23/19 12:06 venom-honey bee Allergy Mild Anaphylactic Verified 02/23/19 12:06 [bee venom (honey bee)] Shock Home Meds: Home Meds amLODIPine [Norvasc] 10 mg PO DAILY 01/25/14 [History] Aspirin [Aspirin EC] 81 mg PO Q48H 03/26/16 [History] predniSONE [Prednisone] 15 mg PO DAILY 03/26/16 [History] Albuterol Sulfate 2 puff INH QID PRN 08/03/16 [History] Levothyroxine Sodium [Synthroid] 75 mcg PO DAILY 11/24/17 [History] Fluticasone Propionate [Flonase] 2 spray .XX DAILY 05/14/18 [History] Ketorolac [Acular LS 0.4% Ophth Soln] 1 drop EYEBOTH TID #1 bottle 07/12/18 [Rx] Loratadine [Allergy] 10 mg PO DAILY #30 tablet 07/12/18 [Rx] Ofloxacin [Ocuflox 0.3% Ophth Soln] 1 drop EYEBOTH DAILY 07/12/18 [History] predniSONE 5 mg PO DAILY #20 tablet 02/23/19 [Rx] Oseltamivir [Tamiflu] 75 mg PO BID #10 cap 08/11/19 [Rx] Past Medical History HEENT History: Reports: Impaired Vision Other HEENT History: wears glasses but sts they don't help Cardiovascular History: Reports: Hypertension Respiratory History: Reports: Asthma, COPD Gastrointestinal History: Reports: GERD 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 Dermatologic History: Reports: Other (See Below) Other Dermatologic History: Abscess on top of head. - Infectious Disease History Infectious Disease History: Reports: Chicken Pox, Measles, Mumps - Past Surgical History Head Surgeries/Procedures: Reports: None HEENT Surgical History: Reports: Oral Surgery Respiratory Surgical History: Reports: None Female Surgical History: Reports: Section Social & Family History - Family History Family Medical History: Noncontributory Musculoskeletal: Reports: Arthritis - Tobacco Use Smoking Status *Q: Current Every Day Smoker Tobacco Use Within Last Twelve Months: Cigarettes - Caffeine Use Caffeine Use: Reports: Coffee, Soda, Tea Other Caffeine Use: 2 per day ED ROS GENERAL - Review of Systems Review Of Systems: Comprehensive ROS is negative, except as noted in HPI. ED EXAM, GENERAL - Physical Exam Exam: See Below Exam Limited By: No Limitations General Appearance: Alert, WD/WN, No Apparent Distress Nose: Normal Inspection Throat/Mouth: Normal Inspection, No Airway Compromise Head: Atraumatic Neck: Normal Inspection Respiratory/Chest: No Respiratory Distress, Lungs Clear, Normal Breath Sounds Cardiovascular: Regular Rate, Rhythm, No Murmur Neurological: Alert, Normal Cognition Psychiatric: Normal Affect, Normal Mood Skin Exam: Warm, Dry, Intact Course - Vital Signs Text/Narrative:: Triage Vitals: T 98.2, HR 89, BP 152/94, Sa02 99% RA - Orders/Labs/Meds Orders: Microbiology 08/11/19 17:25 Influenza Type A Antigen Screen - Final Nasopharyngeal Swab NEGATIVE INFLUENZA A VIRUS AG REFERENCE RANGE: NEGATIVE Influenza Type B Antigen Screen - Final Positive Influenza B Ag Meds: Medications Discontinued Medications Generic Name Dose Route Start Last Admin Trade Name Freq PRN Reason Stop Dose Admin Oseltamivir Phosphate 75 mg 08/11/19 17:49 Tamiflu PO 08/11/19 17:50 ONETIME ONE Departure - Departure Time of Disposition: 17:51 Disposition: Home, Self-Care 01 Condition: Good Clinical Impression: Influenza B - Discharge Information *PRESCRIPTION DRUG MONITORING PROGRAM REVIEWED*: No *COPY OF PRESCRIPTION DRUG MONITORING REPORT IN PATIENT ROD: Not Applicable Prescriptions: Oseltamivir [Tamiflu] 75 mg PO BID #10 cap Instructions: Influenza, Adult, [id number] Referrals: Kenn Cheng MD [Primary Care Provider] - Forms: ED Department Discharge Additional Instructions: Fill the prescription for Tamiflu and take as directed. Take Tylenol as needed for fever. Return to the ER if symptoms worsen. Sepsis Event Note - Focused Exam Date Exam was Performed: 08/11/19 Time Exam was Performed: 17:50
[2019-08-11] MEDS ORDERED: Oseltamivir 75 MG Cap PO ONE (17:49)
[2019-08-11 18:19] VITALS: BP 147/83; PULSE 91
== END 2019-08-11 18:07 | disposition home or self-care (01) ==
LOC: FB.ED 16:44
DX: J10.1 Influenza due to other identified influenza virus with other respiratory manifestations (principal); I10 Essential (primary) hypertension; J44.9 Chronic obstructive pulmonary disease, unspecified; K21.9 Gastro-esophageal reflux disease without esophagitis; F41.9 Anxiety disorder, unspecified; F32.9 Major depressive disorder, single episode, unspecified; F17.210 Nicotine dependence, cigarettes, uncomplicated; E03.9 Hypothyroidism, unspecified; Z79.82 Long term (current) use of aspirin; Z79.899 Other long term (current) drug therapy; Z88.0 Allergy status to penicillin; Z88.1 Allergy status to other antibiotic agents; Z91.030 Bee allergy status
CPT/HCPCS: 87804; 87804-59; 99283; A9270-GY

== ENCOUNTER 2020-07-04 12:15 | Emergency (ER) | payer MEDICARE, MEDICAID ==
[2020-07-04 12:23] VITALS: BP 152/83; PULSE 94
[2020-07-04] MEDS ORDERED: Dexamethasone 4 MG/ML SDV IM ONE (12:44)
--- NOTE | 2020-07-04 12:54 | EDM.PDOC ---
ED HPI GENERAL MEDICAL PROBLEM - General Chief Complaint: General Stated Complaint: JOINT PAIN Time Seen by Provider: 07/04/20 12:45 Source of Information: Reports: Patient History Limitations: Reports: No Limitations - History of Present Illness INITIAL COMMENTS - FREE TEXT/NARRATIVE: pt with Hx of RA, has been on prednisone 10 mg daily for years, comes in today requesting a refill on her prednisone, stating she has been out of it now for 10 days and ever since she has been hurting all over, especially the joints at her hands, shoulders, neck and knees , denies fever, chills or any other associated sx or any other medical concerns. pt report chronic intermittent selling at her joints. - Related Data Allergies Allergy/AdvReac Type Severity Reaction Status Date / Time doxycycline Allergy Mild unknown Verified 02/23/19 12:06 Penicillins Allergy Mild Hives Verified 02/23/19 12:06 tramadol Allergy Mild unknown Verified 02/23/19 12:06 venom-honey bee Allergy Mild Anaphylactic Verified 02/23/19 12:06 [bee venom (honey bee)] Shock Home Meds: Home Meds amLODIPine [Norvasc] 10 mg PO DAILY 01/25/14 [History] Aspirin [Aspirin EC] 81 mg PO Q48H 03/26/16 [History] predniSONE [Prednisone] 15 mg PO DAILY 03/26/16 [History] Albuterol Sulfate 2 puff INH QID PRN 08/03/16 [History] Levothyroxine Sodium [Synthroid] 75 mcg PO DAILY 11/24/17 [History] Fluticasone Propionate [Flonase] 2 spray .XX DAILY 05/14/18 [History] Ketorolac [Acular LS 0.4% Ophth Soln] 1 drop EYEBOTH TID #1 bottle 07/12/18 [Rx] Loratadine [Allergy] 10 mg PO DAILY #30 tablet 07/12/18 [Rx] Ofloxacin [Ocuflox 0.3% Ophth Soln] 1 drop EYEBOTH DAILY 07/12/18 [History] predniSONE 5 mg PO DAILY #20 tablet 02/23/19 [Rx] Oseltamivir [Tamiflu] 75 mg PO BID #10 cap 08/11/19 [Rx] Past Medical History HEENT History: Reports: Impaired Vision Other HEENT History: wears glasses but sts they don't help Cardiovascular History: Reports: Hypertension Respiratory History: Reports: Asthma, COPD Gastrointestinal History: Reports: GERD 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 Dermatologic History: Reports: Other (See Below) Other Dermatologic History: Abscess on top of head. - Infectious Disease History Infectious Disease History: Reports: Chicken Pox, Measles, Mumps - Past Surgical History Head Surgeries/Procedures: Reports: None HEENT Surgical History: Reports: Oral Surgery Respiratory Surgical History: Reports: None Female Surgical History: Reports: Section Social & Family History - Family History Family Medical History: No Pertinent Family History Musculoskeletal: Reports: Arthritis - Caffeine Use Caffeine Use: Reports: Coffee, Soda, Tea Other Caffeine Use: 2 per day ED ROS GENERAL - Review of Systems Review Of Systems: See Below Constitutional: Reports: Fatigue. Denies: Fever, Chills HEENT: Reports: No Symptoms Respiratory: Reports: No Symptoms Cardiovascular: Reports: No Symptoms GI/Abdominal: Reports: No Symptoms Musculoskeletal: Reports: Shoulder Pain, Back Pain, Joint Pain, Joint Swelling. Denies: Muscle Pain, Muscle Stiffness Skin: Reports: No Symptoms Neurological: Reports: No Symptoms ED EXAM, GENERAL - Physical Exam Exam: See Below Exam Limited By: No Limitations General Appearance: Alert, Mild Distress Eye Exam: Bilateral Eye: Normal Inspection Nose: Normal Inspection Throat/Mouth: Normal Oropharynx Head: Atraumatic, Normocephalic Neck: Normal Inspection, Supple Respiratory/Chest: No Respiratory Distress, Lungs Clear, Normal Breath Sounds Cardiovascular: Normal Peripheral Pulses, Regular Rate, Rhythm GI/Abdominal: Normal Bowel Sounds, Soft, Non-Tender Extremities: Normal Inspection, Normal Range of Motion Neurological: Alert, Oriented, CN II-XII Intact Course - Vital Signs Text/Narrative:: pt has a flare of her RA , was given Decadron here also a script on prednisone 10 mg daily for 2 weeks . pt was asked to reschedule her follow up appointment with her hospice spiritual care coordinator that she missed. Last Recorded V/S: Last Vital Signs Temp 36.7 C 07/04/20 12:15 Pulse 94 07/04/20 12:15 Resp 19 07/04/20 12:15 BP 152/83 H 07/04/20 12:15 Pulse Ox 100 07/04/20 12:15 - Orders/Labs/Meds Orders: Active Orders 24 hr Category Date Time Status dexAMETHasone [Decadron] Med 07/04/20 12:44 Once 8 mg IM ONETIME ONE Departure - Departure Time of Disposition: 12:54 Disposition: Home, Self-Care 01 Clinical Impression: Rheumatoid arthritis Qualifiers: Rheumatoid arthritis location: multiple sites Rheumatoid factor presence: with rheumatoid factor Qualified Code(s): M05.79 - Rheumatoid arthritis with rheumatoid factor of multiple sites without organ or systems involvement - Discharge Information Sepsis Event Note (ED) - Focused Exam Vital Signs: Vital Signs Temp Pulse Resp BP Pulse Ox 07/04/20 12:15 36.7 C 94 19 152/83 H 100 - My Orders Last 24 Hours: My Active Orders 07/04/20 12:44 dexAMETHasone [Decadron] 8 mg IM ONETIME ONE - Assessment/Plan Last 24 Hours: My Active Orders 07/04/20 12:44 dexAMETHasone [Decadron] 8 mg IM ONETIME ONE
== END 2020-07-04 13:59 | disposition home or self-care (01) ==
LOC: FB.ED 12:15
DX: M05.79 Rheumatoid arthritis with rheumatoid factor of multiple sites without organ or systems involvement (principal); I10 Essential (primary) hypertension; J44.9 Chronic obstructive pulmonary disease, unspecified; M06.9 Rheumatoid arthritis, unspecified; E03.9 Hypothyroidism, unspecified; Z88.1 Allergy status to other antibiotic agents; Z88.0 Allergy status to penicillin; Z88.5 Allergy status to narcotic agent; Z91.030 Bee allergy status; Z79.82 Long term (current) use of aspirin; Z79.899 Other long term (current) drug therapy
CPT/HCPCS: 96372; 99283; J1100

== ENCOUNTER 2020-09-16 12:35 | Emergency (ER) | payer MEDICARE, MEDICAID ==
--- NOTE | 2020-09-16 13:50 | EDM.PDOC ---
ED HPI GENERAL MEDICAL PROBLEM - General Chief Complaint: Neck Problem Stated Complaint: CAN'T MOVE NECK, PAIN DOWN ARMS WHEN NECK TURNS Time Seen by Provider: 09/16/20 13:43 Source of Information: Reports: Patient History Limitations: Reports: No Limitations - History of Present Illness INITIAL COMMENTS - FREE TEXT/NARRATIVE: Patient slipped in the kitchen while walking on 09/09/20, she caught herself, did not fall. The next day she began to have posterior neck pain which has been worsening day by day. For the last 3 days she has had "pins and needles" to her arms bilaterally and today noticed that she was unable to "control her arms" when she got up from a seated position, but this resolved, however she still feels as if her grasp is slightly weak bilaterally. Also endorses right leg "heaviness" since yesterday @1999. No improvement with Ibuprofen and Tylenol. Patient also endorses pain with swallowing. She has been wearing a soft c-collar that she procured from a friend. PMHx includes Rheumatoid Arthritis, Sjogrens syndrome, HTN, and Hypothyroidism. Duration: Week(s): (1) Location: Reports: Neck Severity: Moderate Associated Symptoms: Reports: No Other Symptoms - Related Data Allergies Allergy/AdvReac Type Severity Reaction Status Date / Time venom-honey bee Allergy Mild Anaphylactic Verified 09/16/20 13:07 [bee venom (honey bee)] Shock tramadol AdvReac Mild Other Verified 09/16/20 13:07 Home Meds: Home Meds amLODIPine [Norvasc] 10 mg PO DAILY 01/25/14 [History] Levothyroxine Sodium [Synthroid] 75 mcg PO DAILY 11/24/17 [History] Past Medical History HEENT History: Reports: Impaired Vision Other HEENT History: wears glasses but sts they don't help Cardiovascular History: Reports: Hypertension Respiratory History: Reports: Asthma, COPD Gastrointestinal History: Reports: GERD RISK 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 Dermatologic History: Reports: Other (See Below) Other Dermatologic History: Abscess on top of head. - Infectious Disease History Infectious Disease History: Reports: Chicken Pox, Measles, Mumps - Past Surgical History Head Surgeries/Procedures: Reports: None HEENT Surgical History: Reports: Oral Surgery Respiratory Surgical History: Reports: None Female Surgical History: Reports: Section Social & Family History - Family History Family Medical History: No Pertinent Family History Musculoskeletal: Reports: Arthritis - Tobacco Use Tobacco Use Status *Q: Current Every Day Tobacco User Tobacco Use Within Last Twelve Months: Cigarettes Years of Tobacco use: 20 Packs/Tins Daily: 0 - Caffeine Use Caffeine Use: Reports: Coffee Other Caffeine Use: 2 per day - Recreational Drug Use Recreational Drug Use: No ED ROS GENERAL - Review of Systems Review Of Systems: Comprehensive ROS is negative, except as noted in HPI. 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 Mild RLE weakness with drift. Sensation intact.), Other (Normal plantar reflexes bilaterally) DTR: 2+: Bicep (R), Bicep (L), Patella (R), Patella (L) Psychiatric: Normal Affect, Normal Mood Skin Exam: Normal Color, Warm/Dry Course - Vital Signs Last Recorded V/S: Last Vital Signs Temp 36.2 C 09/16/20 12:35 Pulse 93 09/16/20 12:35 Resp 16 09/16/20 12:35 BP 125/83 09/16/20 12:35 Pulse Ox 100 09/16/20 12:35 - Orders/Labs/Meds Orders: Active Orders 24 hr Category Date Time Status Cervical Spine wo Cont [CT] Stat Exams 09/16/20 12:59 Taken Head wo Cont [CT] Stat Exams 09/16/20 12:59 Taken - Radiology Interpretation Free Text/Narrative:: Head CT s/ contrast: No acute process. (verbal report from Dr. Burden) CT Cervical spine s/ contrast: Subluxation appears chronic, but is a change from 2014 MRI. No fractures. (verbal report from Dr. Burden) - Re-Assessments/Exams Free Text/Narrative Re-Assessment/Exam: 09/16/20 13:35 Placed in hard cervical collar. 09/16/20 14:[address], agrees that subluxation appears chronic, but believes symptoms are consistent with central cord syndrome. Recommends transfer to [facility] for further eval and MRIs. Departure - Departure Time of Disposition: 14:20 Disposition: DC/Tfer to Acute Hospital 02 Condition: Fair Clinical Impression: Central cord syndrome Qualifiers: Encounter type: initial encounter Qualified Code(s): S14.129A - Central cord syndrome at unspecified level of cervical spinal cord, initial encounter - Discharge Information *PRESCRIPTION DRUG MONITORING PROGRAM REVIEWED*: No *COPY OF PRESCRIPTION DRUG MONITORING REPORT IN PATIENT ROD: Not Applicable Sepsis Event Note (ED) - Evaluation Sepsis Screening Result: No Definite Risk - Focused Exam Vital Signs: Vital Signs Temp Pulse Resp BP Pulse Ox 09/16/20 12:35 36.2 C 93 16 125/83 100 - My Orders Last 24 Hours: My Active Orders 09/16/20 12:59 Cervical Spine wo Cont [CT] Stat Head wo Cont [CT] Stat - Assessment/Plan Last 24 Hours: My Active Orders 09/16/20 12:59 Cervical Spine wo Cont [CT] Stat Head wo Cont [CT] Stat
--- NOTE | 2020-09-16 14:10 | CT ---
INDICATION: Fall five days prior. CT HEAD WITHOUT CONTRAST: Spiral 3.75 mm axial sections were obtained through the brain without contrast with axial, sagittal and coronal reconstructions 09/16/20 and compared with 04/30/10. Total exam DLP was 1167.68 mGy-cm. The paranasal sinuses and mastoid air cells appear to be well aerated. No cranial abnormality was suggested. Calcifications are noted in the internal carotid arteries. Orbits appear to be intact. There is no shift of midline structures. The ventricles are slightly more prominent than on the previous study, suggesting a mild degree of central atrophy. Basal ganglia calcifications are nonspecific. There is now noted a significant increase in the amount of patchy decreased density in the white matter, compatible with fairly significant progression of microvascular disease-type changes in the white matter, although other cause of leukoencephalopathy cannot be excluded. A definite bleeding site or hematoma was not identified. However, it is difficult to exclude areas of evolving thrombotic CVA superimposed on other areas of decreased density that are chronic. IMPRESSION: 1. No definite acute intracranial abnormality, although an evolving thrombotic CVA is difficult to exclude, especially with the amount of decreased density present in the white matter. 2. Moderate to moderately severe white matter changes, progressive compared with the previous study, most likely representing microvascular disease, but should be correlated clinically. 3. Progressive mild central atrophy. Report was called to Dr. Garay at 1350 hours. [facility] [place]
--- NOTE | 2020-09-16 14:19 | CT ---
INDICATION: Fall 5 days prior. COMPUTERIZED TOMOGRAPHY OF THE CERVICAL SPINE WITHOUT CONTRAST: Spiral 3.5 mm axial sections were obtained through the cervical spine with sagittal and coronal reconstructions 09/16/20 and compared with MRI of the cervical spine dated 02/17/14. Total exam DLP was 315.99 mGy-cm. There is a grade 2-3 anterolisthesis noted at C3-4 with marked decrease in disk space. This appearance is most likely on the basis of degenerative changes which are prominent at the apophyseal joints - lateral masses which are overriding. The possibility that there is exacerbation due to trauma is difficult to entirely exclude however. At the C4-5 level, there is decreased disk space with a grade 1 anterolisthesis. Hypertrophic spurring is minimal at that level. At C5-6, there is severe loss of disk space with virtually no remaining disk space, subchondral cystic change and sclerosis present as well as moderate hypertrophic degenerative changes anteriorly and posteriorly with retrolisthesis grade 1 noted at C5-6. At C6-7, there is also severe decreased disk space with vacuum joint phenomenon, hypertrophic degenerative changes and a minimal retrolisthesis. Reversal of the normal cervical lordosis is noted centered at C5. A definite acute fracture was not identified. The odontoid appears to be intact with moderate hypertrophic degenerative changes and loss of odontoatlantian joint space present; however, the atlas and axis appear to be intact otherwise. Neural foraminal stenosis appears to be severe at the C3-4 level and less prominent at C5-6 and C6-7, but still possibly significant at those levels. Prevertebral spaces appear to be fairly normal. Bone density appeared to be normal. IMPRESSION: 1. No definite acute fracture or dislocation; however, the possibility of exacerbation of anterolisthesis present at several levels in the mid cervical spine cannot be entirely excluded as there is a significant change in the appearance compared with MRI from 2014. 2. Degenerative changes and disk disease with reversal of normal cervical lordosis. Report was called to Dr. Garay at 1350 hours. [facility]
[2020-09-16 14:20] VITALS: BP 165/80; PULSE 77
[2020-09-16] MEDS ORDERED: Sodium Chloride 0.9% 10 ML Syringe FLUSH PRN (14:22)
== END 2020-09-16 14:50 ==
LOC: FB.ED 12:35
DX: S14.129A Central cord syndrome at unspecified level of cervical spinal cord, initial encounter (principal); I10 Essential (primary) hypertension; J44.9 Chronic obstructive pulmonary disease, unspecified; E03.9 Hypothyroidism, unspecified; Z72.0 Tobacco use; Z91.030 Bee allergy status; Z88.5 Allergy status to narcotic agent; Z79.899 Other long term (current) drug therapy; W01.0XXA Fall on same level from slipping, tripping and stumbling without subsequent striking against object, initial encounter
CPT/HCPCS: 70450; 72125; 99285; 99285-25

== ENCOUNTER 2021-07-23 13:59 | Emergency (ER) | payer MEDICARE, MEDICAID ==
[2021-07-23] MEDS ORDERED: amLODIPine 5 MG Tab PO ONE (14:45)
--- NOTE | 2021-07-23 14:52 | EDM.PDOC ---
ED HPI GENERAL MEDICAL PROBLEM - General Stated Complaint: SWOLLEN FEET Time Seen by Provider: 07/23/21 14:15 Source of Information: Reports: Patient - History of Present Illness INITIAL COMMENTS - FREE TEXT/NARRATIVE: 61-year-old lady was brought to the emergency department by her friend because of bilateral lower extremity pain and swelling. He thinks that she may have had some bug bites that have become infected. She also notes that she has not had her medication for about a month or more. She normally takes amlodipine and levothyroxine. On further questioning the patient states that she is having a little bit of dif ficulty with breathing. She states that this really just started yesterday. She thinks she might be coming down with a "cold." She does not remember exactly when but 2 to 3 months ago she fell and broke her neck and had surgery with an anterior approach to correct damage done to her cervical spine. She denies any residual neurological effects at this time. She has no other acute complaints. - Related Data Allergies Allergy/AdvReac Type Severity Reaction Status Date / Time venom-honey bee Allergy Mild Anaphylactic Verified 09/16/20 13:07 [bee venom (honey bee)] Shock tramadol AdvReac Mild Other Verified 09/16/20 13:07 Home Meds: Home Meds amLODIPine [Norvasc] 10 mg PO DAILY 01/25/14 [History] Levothyroxine Sodium [Synthroid] 75 mcg PO DAILY 11/24/17 [History] Past Medical History HEENT History: Reports: Impaired Vision Other HEENT History: wears glasses but sts they don't help Cardiovascular History: Reports: Hypertension Respiratory History: Reports: Asthma, COPD Gastrointestinal History: Reports: GERD 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 Dermatologic History: Reports: Other (See Below) Other Dermatologic History: Abscess on top of head. - Infectious Disease History Infectious Disease History: Reports: Chicken Pox, Measles, Mumps - Past Surgical History Head Surgeries/Procedures: Reports: None HEENT Surgical History: Reports: Oral Surgery Respiratory Surgical History: Reports: None Female Surgical History: Reports: Section Social & Family History - Family History Family Medical History: No Pertinent Family History Musculoskeletal: Reports: Arthritis - Caffeine Use Caffeine Use: Reports: Coffee Other Caffeine Use: 2 per day ED ROS GENERAL - Review of Systems Review Of Systems: See Below Constitutional: Reports: No Symptoms HEENT: Reports: No Symptoms Respiratory: Reports: Shortness of Breath Cardiovascular: Reports: No Symptoms Endocrine: Reports: No Symptoms GI/Abdominal: Reports: No Symptoms : Reports: No Symptoms Musculoskeletal: Reports: Leg Pain, Foot Pain Skin: Reports: Erythema Neurological: Reports: No Symptoms Psychiatric: Reports: No Symptoms Hematologic/Lymphatic: Reports: No Symptoms Immunologic: Reports: No Symptoms ED EXAM, GENERAL - Physical Exam Exam: See Below Exam Limited By: No Limitations General Appearance: Alert, Lethargic, Mild Distress Eye Exam: Bilateral Eye: EOMI Head: Atraumatic, Normocephalic Neck: Other (Surgical scar visualized in the right lateral base of the neck, no abnormalities) Respiratory/Chest: Crackles Cardiovascular: Regular Rate, Rhythm, Other (Heart sounds are distant and difficult to auscultate) GI/Abdominal: Normal Bowel Sounds, Soft, Non-Tender Back Exam: Normal Inspection Extremities: Pedal Edema, Leg Pain, Redness, Other (Bilateral lower extremity swelling, right greater than left, calor care erythema, consistent with cellulitis) Neurological: Alert, Oriented, Normal Cognition Psychiatric: Flat Affect Skin Exam: Erythema, Increased Warmth Course - Vital Signs Text/Narrative:: Review of laboratory analysis shows that the patient has findings consistent with congestive heart failure with significantly elevated BNP. D-dimer is also elevated. In conjunction with elevated D-dimer, bilateral lower extremity swelling with right greater than left, and shortness of breath CTA was performed. CTA showed bilateral pleural effusions moderate on the right, small to moderate on the left. CTA also showed moderate to large pericardial effusion. Other problems include acute kidney injury and hypertensive emergency. As mentioned, the patient has not taken her blood pressure medicine in a month or more and she had significant hypertension as high as 197/123. She did not have any complaints of headache, change in vision, but she did have acute kidney injury. We did give the patient 1 dose of amlodipine, 10 mg. This is, according to our records, her normal daily dose. We were able to get a follow- up blood pressure of approximately 174/112 but patient left before we were able to administer any further treatment. Patient became upset and decided to leave. She removed her blood pressure cuff and O2 monitor and walked out of the emergency department. I followed her to the foyer with our bilingual medical receptionist and explained to her very explicitly that she had fluid in her lungs and fluid around her heart. I explained to her that if she does not have treatment it is very possible that she could in the next several hours to day or 2. She expressed understanding and agreement. If we had not locked the door to prevent her from leaving she would have walked outside into the snow with just socks on her feet. She was able to contact a [employer] and leave. We tried to convince her to stay and asked her to sign paperwork for AMA but she refused and left. I tried to contact the Company but it was too late she had already been dropped off. I called her friend and dropped her off at the hospital and he stated he would try to go to her house and talk her into coming back to this hospital or going to a different hospital. Last Recorded V/S: Last Vital Signs Temp 36.9 C 07/23/21 14:00 Pulse 87 07/23/21 14:00 Resp 20 07/23/21 14:00 BP 195/127 H 07/23/21 15:49 Pulse Ox 94 L 07/23/21 14:00 - Orders/Labs/Meds Orders: Active Orders 24 hr Category Date Time Status Ang Chest [CT] Stat Exams 07/23/21 16:00 Taken CXR [Chest 2V] [CR] Stat Exams 07/23/21 15:05 Taken CULTURE BLOOD [BC] Urgent Lab 07/23/21 14:50 Received CULTURE BLOOD [BC] Urgent Lab 07/23/21 14:55 Received Blood Culture x2 Reflex Set [OM.PC] Urgent Oth 07/23/21 15:37 Ordered Labs: Laboratory Tests 07/23/21 07/23/21 07/23/21 Range/Units 14:50 14:50 14:50 WBC 5.1 (3.0-10.3) x10-3/uL RBC 4.79 (3.60-5.20) x10(6)uL Hgb 13.2 (11.4-15.5) g/dL Hct 40.2 (34.2-48.2) % MCV 83.9 (76.7-100.5) fL MCH 27.6 (23.9-33.9) pg MCHC 32.9 (31.9-34.8) g/dL RDW 15.1 (12.3-16.5) % Plt Count 412 (151-488) x10(3)uL MPV 6.6 L (7.1-12.4) fL Neut % (Auto) 68.6 (30.8-76.2) % Lymph % (Auto) 24.4 (18.4-52.1) % Payette % (Auto) 4.3 L (4.4-15.7) % Eos % (Auto) 1.5 (0.6-8.1) % Baso % (Auto) 1.2 (0.2-1.5) % Neut # (Auto) 3.5 (1.5-6.3) x10-3/uL Lymph # (Auto) 1.3 (1.0-4.4) x10-3/uL Payette # (Auto) 0.2 L (0.3-1.0) x10-3/uL Eos # (Auto) 0.1 (0.0-0.8) x10-3/uL Baso # (Auto) 0.1 (0.0-0.1) x10-3/uL D-Dimer, Quantitative 4.28 H (0.0-0.59) mg/LFEU Sodium 137 (135-145) mmol/L Potassium 3.7 (3.5-5.3) mmol/L Chloride 102 (100-110) mmol/L Carbon Dioxide 27 (21-32) mmol/L BUN 13 (7-18) mg/dL Creatinine 1.3 H (0.55-1.02) mg/dL Est Cr Clr Drug Dosing TNP Estimated GFR (MDRD) 42 L (>60) BUN/Creatinine Ratio 10.0 (9-20) Glucose 111 (80-116) mg/dL Calcium 8.7 (8.6-10.2) mg/dL Total Bilirubin 0.3 (0.1-1.3) mg/dL AST 36 H D (5-25) IU/L ALT 21 (12-36) U/L Alkaline Phosphatase 83 (56-112) IU/L NT-Pro-B Natriuret Pep (<=125) pg/mL Total Protein 7.7 (6.0-8.0) g/dL Albumin 3.6 (3.2-4.6) g/dL Globulin 4.1 g/dL Albumin/Globulin Ratio 0.9 Influenza Type A RNA (NEGATIVE) Influenza Type B RNA (NEGATIVE) SARS-CoV-2 RNA (FREDI) (NEGATIVE) 07/23/21 07/23/21 Range/Units 14:50 15:50 WBC (3.0-10.3) x10-3/uL RBC (3.60-5.20) x10(6)uL Hgb (11.4-15.5) g/dL Hct (34.2-48.2) % MCV (76.7-100.5) fL MCH (23.9-33.9) pg MCHC (31.9-34.8) g/dL RDW (12.3-16.5) % Plt Count (151-488) x10(3)uL MPV (7.1-12.4) fL Neut % (Auto) (30.8-76.2) % Lymph % (Auto) (18.4-52.1) % Payette % (Auto) (4.4-15.7) % Eos % (Auto) (0.6-8.1) % Baso % (Auto) (0.2-1.5) % Neut # (Auto) (1.5-6.3) x10-3/uL Lymph # (Auto) (1.0-4.4) x10-3/uL Payette # (Auto) (0.3-1.0) x10-3/uL Eos # (Auto) (0.0-0.8) x10-3/uL Baso # (Auto) (0.0-0.1) x10-3/uL D-Dimer, Quantitative (0.0-0.59) mg/LFEU Sodium (135-145) mmol/L Potassium (3.5-5.3) mmol/L Chloride (100-110) mmol/L Carbon Dioxide (21-32) mmol/L BUN (7-18) mg/dL Creatinine (0.55-1.02) mg/dL Est Cr Clr Drug Dosing Estimated GFR (MDRD) (>60) BUN/Creatinine Ratio (9-20) Glucose (80-116) mg/dL Calcium (8.6-10.2) mg/dL Total Bilirubin (0.1-1.3) mg/dL AST (5-25) IU/L ALT (12-36) U/L Alkaline Phosphatase (56-112) IU/L NT-Pro-B Natriuret Pep 7436 H* (<=125) pg/mL Total Protein (6.0-8.0) g/dL Albumin (3.2-4.6) g/dL Globulin g/dL Albumin/Globulin Ratio Influenza Type A RNA Negative (NEGATIVE) Influenza Type B RNA Negative (NEGATIVE) SARS-CoV-2 RNA (FREDI) Negative (NEGATIVE) Meds: Medications Discontinued Medications Generic Name Dose Route Start Last Admin Trade Name Freq PRN Reason Stop Dose Admin Amlodipine Besylate 10 mg 07/23/21 14:45 07/23/21 15:49 Amlodipine 5 Mg Tab PO 07/23/21 14:46 10 mg ONETIME ONE Administration Iopamidol 53 ml 07/23/21 16:09 07/23/21 16:20 Iopamidol 755 Mg/Ml 75 Ml Bottle IV 07/23/21 16:10 53 ml ONETIME ONE Administration Departure - Departure Time of Disposition: 17:10 Disposition: Against Medical Advice 07 Condition: Serious Clinical Impression: Hypertensive emergency, Acute kidney injury, Pericardial effusion, Bilateral pleural effusion, Swelling of both lower extremities, Cellulitis of right lower extremity - Discharge Information *PRESCRIPTION DRUG MONITORING PROGRAM REVIEWED*: Not Applicable *COPY OF PRESCRIPTION DRUG MONITORING REPORT IN PATIENT ROD: Not Applicable Referrals: PCP,None [Primary Care Provider] - Forms: ED Department Discharge Additional Instructions: Patient left AGAINST MEDICAL ADVICE Sepsis Event Note (ED) - Focused Exam Vital Signs: Vital Signs Temp Pulse Resp BP BP Pulse Ox 07/23/21 15:49 195/127 H 07/23/21 14:00 36.9 C 87 20 191/114 H 94 L - My Orders Last 24 Hours: My Active Orders 07/23/21 14:50 CULTURE BLOOD [BC] Urgent 07/23/21 14:55 CULTURE BLOOD [BC] Urgent 07/23/21 15:05 CXR [Chest 2V] [CR] Stat 07/23/21 15:37 Blood Culture x2 Reflex Set [OM.PC] Urgent 07/23/21 16:00 Ang Chest [CT] Stat - Assessment/Plan Last 24 Hours: My Active Orders 07/23/21 14:50 CULTURE BLOOD [BC] Urgent 07/23/21 14:55 CULTURE BLOOD [BC] Urgent 07/23/21 15:05 CXR [Chest 2V] [CR] Stat 07/23/21 15:37 Blood Culture x2 Reflex Set [OM.PC] Urgent 07/23/21 16:00 Ang Chest [CT] Stat
[2021-07-23] MEDS ORDERED: Iopamidol 755 Mg/ML 75 ML Bottle IV ONE (16:09)
[2021-07-23 16:44] LABS: CORONAVIRUS COVID-19 NAA NEGATIVE (NEGATIVE)
[2021-07-23 19:51] VITALS: BP 191/114; PULSE 87
== END 2021-07-23 17:10 | disposition left against medical advice (07) ==
LOC: FB.ED 13:59
DX: J90 Pleural effusion, not elsewhere classified (principal); L03.115 Cellulitis of right lower limb; I16.1 Hypertensive emergency; N17.9 Acute kidney failure, unspecified; J44.9 Chronic obstructive pulmonary disease, unspecified; Z88.8 Allergy status to other drugs, medicaments and biological substances; Z20.822 Contact with and (suspected) exposure to COVID-19
CPT/HCPCS: 0240U; 36415; 71046; 71275; 80053; 83880; 85025; 85379; 87040; 99284-25; 99285; A9270-GY; Q9967

== ENCOUNTER 2022-07-17 04:42 | Inpatient (IN) | payer MEDICARE, MEDICAID ==
[2022-07-17] MEDS: Sodium Chloride 0.9% 10 ML Syringe FLUSH PRN ×4 (05:05→22:10)
[2022-07-17 05:19] LABS: ESTIMATED GFR 57 mL/min (>60)
[2022-07-17] MEDS ORDERED: cefTRIAXone 2 GM Vial IVPUSH ONE (05:49)
[2022-07-17] MEDS ORDERED: Ketorolac 30 MG/ML SDV IVPUSH ONE ×2 (05:49→11:15)
[2022-07-17] MEDS ORDERED: VANCOmycin 2 GM/400 ML 2 GM in Premix Bag 1 BAG IV ONE (06:16)
[2022-07-17] MEDS ORDERED: Iopamidol 755 Mg/ML 100 ML Bottle IV ONE (06:53)
[2022-07-17] MEDS ORDERED: Metoprolol Succinate 25 MG Tab.ER PO ONE (09:44)
[2022-07-17] MEDS ORDERED: amLODIPine 5 MG Tab PO SCH (12:45)
[2022-07-17] MEDS ORDERED: Ondansetron 4 MG Tab.DIS PO PRN (13:18)
[2022-07-17] MEDS ORDERED: Hydrochlorothiazide 12.5 MG Cap PO SCH (13:30)
[2022-07-17] MEDS: oxyCODONE 5 MG Tab PO PRN ×2 (13:44→21:03)
[2022-07-17] MEDS: Saccharomyces Boulardii (Probiotic) 250 MG Cap PO SCH ×2 (13:44→21:04)
[2022-07-17] MEDS: metroNIDAZOLE/Normal Saline 500 MG in Premix Bag 1 BAG IV SCH ×2 (13:45→21:10)
[2022-07-17] MEDS: Ibuprofen 200 MG Tab PO SCH (17:41)
[2022-07-17] MEDS: Acetaminophen 500 MG Tab PO SCH (17:43)
[2022-07-18] MEDS: metroNIDAZOLE/Normal Saline 500 MG in Premix Bag 1 BAG IV SCH ×4 (05:03→22:07)
[2022-07-18] MEDS: Acetaminophen 500 MG Tab PO SCH ×4 (05:13→19:35)
[2022-07-18] MEDS: Ibuprofen 200 MG Tab PO SCH ×4 (05:14→19:34)
[2022-07-18] MEDS: Sodium Chloride 0.9% 10 ML Syringe FLUSH PRN ×3 (06:10→13:01)
[2022-07-18] MEDS: cefTRIAXone 2 GM Vial IVPUSH SCH (06:15)
[2022-07-18 06:58] LABS: ESTIMATED GFR 64 mL/min (>60)
[2022-07-18] MEDS: Dexamethasone/Tobramycin 0.1-0.3% Ophth Susp 2.5 ML Bottle EYEBOTH SCH ×4 (10:49→22:08)
[2022-07-18] MEDS ORDERED: Ondansetron 4 MG/2 ML SDV IVPUSH PRN (10:51)
[2022-07-18] MEDS: amLODIPine 10 MG Tab PO SCH (11:19)
[2022-07-18] MEDS: Saccharomyces Boulardii (Probiotic) 250 MG Cap PO SCH ×3 (11:20→22:09)
[2022-07-18] MEDS: Hydrochlorothiazide 25 MG Tab PO SCH (11:21)
[2022-07-18] MEDS ORDERED: Nicotine Polacrilex 2 MG Gum CHEW PRN (11:26)
[2022-07-18] MEDS: Nicotine 21 MG/24 Hr Patch TRDERM SCH (14:56)
[2022-07-18] MEDS ORDERED: Morphine 2 MG/ML SYRINGE IVPUSH PRN (15:47)
[2022-07-18] MEDS: oxyCODONE 5 MG Tab PO SCH ×2 (16:05→21:46)
[2022-07-18] MEDS ORDERED: LORazepam 2 MG/ML SDV IVPUSH PRN (16:07)
[2022-07-18] MEDS: Levothyroxine 100 MCG Tab PO SCH (19:14)
[2022-07-19] MEDS: Ibuprofen 200 MG Tab PO SCH ×2 (00:13→05:56)
[2022-07-19] MEDS: Acetaminophen 500 MG Tab PO SCH ×2 (00:14→05:57)
[2022-07-19] MEDS: oxyCODONE 5 MG Tab PO SCH ×5 (04:21→20:57)
[2022-07-19] MEDS: cefTRIAXone 2 GM Vial IVPUSH SCH (05:56)
[2022-07-19] MEDS: metroNIDAZOLE/Normal Saline 500 MG in Premix Bag 1 BAG IV SCH (05:56)
[2022-07-19] MEDS: Levothyroxine 100 MCG Tab PO SCH (05:56)
[2022-07-19] MEDS ORDERED: VANCOmycin 1 GM/200 ML 200 ML IV SCH (06:00)
[2022-07-19] MEDS: Dexamethasone/Tobramycin 0.1-0.3% Ophth Susp 2.5 ML Bottle EYEBOTH SCH ×3 (09:06→20:55)
[2022-07-19] MEDS: Saccharomyces Boulardii (Probiotic) 250 MG Cap PO SCH ×2 (09:07→20:55)
[2022-07-19] MEDS: Hydrochlorothiazide 25 MG Tab PO SCH (09:07)
[2022-07-19] MEDS: amLODIPine 10 MG Tab PO SCH (09:07)
[2022-07-19] MEDS: Nicotine 21 MG/24 Hr Patch TRDERM SCH (09:10)
[2022-07-19] MEDS: NICOTINE PATCH TRDERM SCH (09:11)
[2022-07-19] MEDS ORDERED: Acetaminophen 500 MG Tab PO PRN (09:28)
[2022-07-19] MEDS ORDERED: Ibuprofen 200 MG Tab PO PRN (09:28)
[2022-07-19] MEDS: Doxycycline 100 MG Tab PO SCH ×2 (10:28→20:55)
[2022-07-19] MEDS: metroNIDAZOLE 500 MG Tab PO SCH ×3 (10:28→20:55)
[2022-07-19] MEDS ORDERED: Menthol/Methyl Salicylate 114 GM Jar TOP PRN (23:54)
[2022-07-20] MEDS: Levothyroxine 100 MCG Tab PO SCH (05:59)
[2022-07-20] MEDS ORDERED: Menthol 10%/Methyl Salicylate 30% 85 GM Tube TOP PRN (07:41)
[2022-07-20] MEDS: Dexamethasone/Tobramycin 0.1-0.3% Ophth Susp 2.5 ML Bottle EYEBOTH SCH (08:45)
[2022-07-20] MEDS: Hydrochlorothiazide 25 MG Tab PO SCH (08:46)
[2022-07-20] MEDS: amLODIPine 10 MG Tab PO SCH (08:46)
[2022-07-20] MEDS: Saccharomyces Boulardii (Probiotic) 250 MG Cap PO SCH (08:47)
[2022-07-20] MEDS: Doxycycline 100 MG Tab PO SCH (08:48)
[2022-07-20] MEDS: metroNIDAZOLE 500 MG Tab PO SCH (08:49)
[2022-07-20] MEDS: Nicotine 21 MG/24 Hr Patch TRDERM SCH ×2 (08:50→10:37)
[2022-07-20] MEDS: NICOTINE PATCH TRDERM SCH (08:51)
[2022-07-20] MEDS: oxyCODONE 5 MG Tab PO SCH ×2 (09:21→10:36)
[2022-07-20 10:30] VITALS: BP 143/79; PULSE 78
== END 2022-07-20 11:55 | disposition home or self-care (01) | DRG 603 ==
LOC: FB.ED 04:42 → FB.MS 11:17
PROVIDERS: ADMIT Family Medicine; ATTEND Family Medicine
DX: L03.213 Periorbital cellulitis (principal); J01.30 Acute sphenoidal sinusitis, unspecified; H10.33 Unspecified acute conjunctivitis, bilateral; I10 Essential (primary) hypertension; R62.7 Adult failure to thrive; M06.9 Rheumatoid arthritis, unspecified; E03.9 Hypothyroidism, unspecified; F12.10 Cannabis abuse, uncomplicated; F17.210 Nicotine dependence, cigarettes, uncomplicated; F11.10 Opioid abuse, uncomplicated; Z79.899 Other long term (current) drug therapy; M05.79 Rheumatoid arthritis with rheumatoid factor of multiple sites without organ or systems involvement; F17.200 Nicotine dependence, unspecified, uncomplicated; H54.7 Unspecified visual loss; J44.9 Chronic obstructive pulmonary disease, unspecified; K21.9 Gastro-esophageal reflux disease without esophagitis; F41.9 Anxiety disorder, unspecified; F32.A Depression, unspecified; J32.2 Chronic ethmoidal sinusitis; G89.4 Chronic pain syndrome; Z91.030 Bee allergy status; Z88.0 Allergy status to penicillin; Z88.5 Allergy status to narcotic agent
CPT/HCPCS: 36415; 70481; 80048; 80053; 80202; 80307; 83605; 83880; 84443; 84484; 85025; 85651; 86140; 96365; 96366; 96375; 96376; 99284-25; A9270-GY; J0696; J1885; J3370; J3490; J7050; Q9967

== ENCOUNTER 2023-01-14 14:29 | Inpatient (IN) | payer MEDICAID, MEDICARE ==
[2023-01-14 15:59] LABS: EOSINOPHILS PERCENT AUTO 0.3 % (0.6-8.1); LYMPHOCYTES ABSOLUTE AUTO 0.9 x10-3/uL (1.0-4.4); MONOCYTES ABSOLUTE AUTO 0.1 x10-3/uL (0.3-1.0); MONOCYTES PERCENT AUTO 2.7 % (4.4-15.7); NEUTROPHILS ABSOLUTE AUTO 4.1 x10-3/uL (1.5-6.3); WHITE BLOOD CELL COUNT,WBC 5.2 x10-3/uL (3.0-10.3)
[2023-01-14] MEDS: Sodium Chloride 0.9% 10 ML Syringe FLUSH PRN ×3 (15:59→22:09)
[2023-01-14 16:01] LABS: BASOPHILS PERCENT AUTO 0.5 % (0.2-1.5); HEMATOCRIT 34.8 % (34.2-48.2); HEMOGLOBIN 11.6 g/dL (11.4-15.5); LYMPHOCYTES PERCENT AUTO 17.1 % (18.4-52.1); MEAN CORPUSCULAR HEMOGLOBIN 26.3 pg (23.9-33.9); MEAN CORPUSCULAR HGB CONC 33.4 g/dL (31.9-34.8); MEAN CORPUSCULAR VOLUME 78.7 fL (76.7-100.5); NEUTROPHILS PERCENT AUTO 79.4 % (30.8-76.2); PLATELET COUNT,PLT 440 x10(3)uL (151-488); RED BLOOD CELL COUNT 4.42 x10(6)uL (3.60-5.20); RED CELL DISTRIBUTION WIDTH 16.1 % (12.3-16.5)
[2023-01-14 16:09] LABS: BLOOD UREA NITROGEN,BUN 16 mg/dL (7-18); BUN/CREATININE RATIO 14.5 (9-20); CALCIUM 8.2 mg/dL (8.6-10.2); CARBON DIOXIDE,CO2 25 mmol/L (21-32); CHLORIDE,CL 95 mmol/L (100-110); CREATININE 1.1 mg/dL (0.55-1.02); EST CRCL DRUG DOSING (CG) 37.69 mL/min; ESTIMATED GFR 57 mL/min (>60); GLUCOSE RANDOM 144 mg/dL (80-116); POTASSIUM,K 3.7 mmol/L (3.5-5.3); SODIUM,NA 129 mmol/L (135-145)
[2023-01-14 16:15] LABS: LACTIC ACID 0.6 mmol/L (0.4-2.0)
[2023-01-14 16:16] LABS: A/G RATIO 0.8; ALANINE AMINOTRANSFERASE,ALT 18 U/L (12-36); ALBUMIN 3.3 g/dL (3.2-4.6); ALKALINE PHOSPHATASE 73 IU/L (56-112); ASPARTATE AMNIOTRANSFERASE,AST 27 IU/L (5-25); BILIRUBIN TOTAL 0.4 mg/dL (0.1-1.3); PROTEIN TOTAL,TP 7.4 g/dL (6.0-8.0)
[2023-01-14] MEDS ORDERED: Iopamidol 755 Mg/ML 100 ML Bottle IV ONE (16:25)
[2023-01-14] MEDS ORDERED: Ondansetron 4 MG/2 ML SDV IV PRN (18:27)
[2023-01-14] MEDS ORDERED: Albuterol/Ipratropium 3.0-0.5 MG/3 ML Neb Soln INH PRN (18:27)
[2023-01-14] MEDS ORDERED: Sennosides/Docusate Sodium 50-8.6 MG Tab PO PRN (18:27)
[2023-01-14] MEDS ORDERED: Albuterol 0.083% 2.5 MG/3 ML Neb Soln NEB PRN (18:27)
[2023-01-14] MEDS ORDERED: Acetaminophen 325 MG Tab PO PRN (18:27)
[2023-01-14] MEDS: amLODIPine 10 MG Tab PO SCH (20:08)
[2023-01-14] MEDS: cefTRIAXone 1 GM Vial IVPUSH SCH (20:08)
[2023-01-14] MEDS: Enoxaparin 40 MG/0.4 ML Syringe SUBCUT SCH (20:13)
[2023-01-14] MEDS: Ibuprofen 200 MG Tab PO PRN (20:42)
[2023-01-14 22:57] LABS: BILIRUBIN,URINE NEGATIVE (NEGATIVE); GLUCOSE,URINE NORMAL (NORMAL); KETONES,URINE 15 mg/dL (NEGATIVE); LEUKOCYTE ESTERASE,URINE NEGATIVE (NEGATIVE); NITRITE,URINE NEGATIVE (NEGATIVE); OCCULT BLOOD,URINE NEGATIVE (NEGATIVE); PROTEIN,URINE NEGATIVE (NEGATIVE); UROBILINOGEN,URINE NORMAL (NEGATIVE)
[2023-01-14 23:03] LABS: APPEARANCE,URINE CLEAR (CLEAR); BACTERIA,URINE FEW (NS); COLOR,URINE YELLOW (YELLOW); RBC,URINE 0-5 (0-5); SQUAMOUS EPITHELIAL CELLS,UR FEW (NS,R,O); WBC,URINE 0-5 (0-5)
[2023-01-14 23:08] LABS: AMPHETAMINES SCREEN, URINE POSITIVE (NEGATIVE); BARBITURATE SCREEN,URINE NEGATIVE (NEGATIVE); BENZODIAZEPINES SCREEN,URINE NEGATIVE (NEGATIVE); METHADONE SCREEN, URINE NEGATIVE (NEGATIVE); METHAMPHETAMINE SCREEN, URINE POSITIVE (NEGATIVE); OXYCODONE SCREEN,URINE NEGATIVE (NEGATIVE); PROPOXYPHENE SCREEN,URINE NEGATIVE (NEGATIVE); THC SCREEN,URINE NEGATIVE (NEGATIVE)
[2023-01-14 23:09] LABS: BUPRENORPHINE SCREEN,URINE NEGATIVE (NEGATIVE)
[2023-01-15] MEDS: Levothyroxine 100 MCG Tab PO SCH (07:15)
[2023-01-15 07:25] LABS: EOSINOPHILS PERCENT AUTO 1.1 % (0.6-8.1); HEMATOCRIT 33.6 % (34.2-48.2); HEMOGLOBIN 11.2 g/dL (11.4-15.5); LYMPHOCYTES ABSOLUTE AUTO 1.3 x10-3/uL (1.0-4.4); LYMPHOCYTES PERCENT AUTO 31.7 % (18.4-52.1); MEAN CORPUSCULAR HEMOGLOBIN 26.3 pg (23.9-33.9); MEAN CORPUSCULAR HGB CONC 33.3 g/dL (31.9-34.8); MEAN CORPUSCULAR VOLUME 78.8 fL (76.7-100.5); MEAN PLATELET VOLUME 6.1 fL (7.1-12.4); MONOCYTES ABSOLUTE AUTO 0.2 x10-3/uL (0.3-1.0); MONOCYTES PERCENT AUTO 4.7 % (4.4-15.7); NEUTROPHILS ABSOLUTE AUTO 2.5 x10-3/uL (1.5-6.3); NEUTROPHILS PERCENT AUTO 61.5 % (30.8-76.2); PLATELET COUNT,PLT 433 x10(3)uL (151-488); RED BLOOD CELL COUNT 4.26 x10(6)uL (3.60-5.20); RED CELL DISTRIBUTION WIDTH 15.9 % (12.3-16.5)
[2023-01-15 07:36] LABS: A/G RATIO 0.7; ALANINE AMINOTRANSFERASE,ALT 18 U/L (12-36); ALBUMIN 2.7 g/dL (3.2-4.6); ALKALINE PHOSPHATASE 74 IU/L (56-112); ASPARTATE AMNIOTRANSFERASE,AST 28 IU/L (5-25); BILIRUBIN TOTAL 0.2 mg/dL (0.1-1.3); BLOOD UREA NITROGEN,BUN 15 mg/dL (7-18); BUN/CREATININE RATIO 16.7 (9-20); CALCIUM 7.8 mg/dL (8.6-10.2); CARBON DIOXIDE,CO2 26 mmol/L (21-32); CHLORIDE,CL 100 mmol/L (100-110); CREATININE 0.9 mg/dL (0.55-1.02); EST CRCL DRUG DOSING (CG) 39.66 mL/min; ESTIMATED GFR 73 mL/min (>60); GLUCOSE RANDOM 106 mg/dL (80-116); POTASSIUM,K 3.8 mmol/L (3.5-5.3); PROTEIN TOTAL,TP 6.8 g/dL (6.0-8.0); SODIUM,NA 134 mmol/L (135-145)
[2023-01-15] MEDS: amLODIPine 10 MG Tab PO SCH (09:18)
[2023-01-15] MEDS: Ibuprofen 200 MG Tab PO PRN (09:19)
[2023-01-15] MEDS: cefTRIAXone 1 GM Vial IVPUSH SCH (18:50)
[2023-01-15] MEDS: Sodium Chloride 0.9% 10 ML Syringe FLUSH PRN ×3 (18:52→22:49)
[2023-01-15] MEDS: Enoxaparin 40 MG/0.4 ML Syringe SUBCUT SCH (21:04)
[2023-01-16 06:21] LABS: BASOPHILS PERCENT AUTO 0.7 % (0.2-1.5); EOSINOPHILS ABSOLUTE AUTO 0.1 x10-3/uL (0.0-0.8); HEMATOCRIT 34.6 % (34.2-48.2); HEMOGLOBIN 11.4 g/dL (11.4-15.5); LYMPHOCYTES ABSOLUTE AUTO 1.5 x10-3/uL (1.0-4.4); LYMPHOCYTES PERCENT AUTO 26.5 % (18.4-52.1); MEAN CORPUSCULAR HEMOGLOBIN 25.9 pg (23.9-33.9); MEAN CORPUSCULAR HGB CONC 32.8 g/dL (31.9-34.8); MEAN CORPUSCULAR VOLUME 78.9 fL (76.7-100.5); MEAN PLATELET VOLUME 6.1 fL (7.1-12.4); MONOCYTES ABSOLUTE AUTO 0.2 x10-3/uL (0.3-1.0); MONOCYTES PERCENT AUTO 3.1 % (4.4-15.7); NEUTROPHILS ABSOLUTE AUTO 3.8 x10-3/uL (1.5-6.3); NEUTROPHILS PERCENT AUTO 68.7 % (30.8-76.2); PLATELET COUNT,PLT 452 x10(3)uL (151-488); RED BLOOD CELL COUNT 4.39 x10(6)uL (3.60-5.20); RED CELL DISTRIBUTION WIDTH 16.4 % (12.3-16.5); WHITE BLOOD CELL COUNT,WBC 5.5 x10-3/uL (3.0-10.3)
[2023-01-16 06:28] LABS: BLOOD UREA NITROGEN,BUN 16 mg/dL (7-18); CALCIUM 8.2 mg/dL (8.6-10.2); CARBON DIOXIDE,CO2 28 mmol/L (21-32); CHLORIDE,CL 100 mmol/L (100-110); CREATININE 0.8 mg/dL (0.55-1.02); EST CRCL DRUG DOSING (CG) 44.62 mL/min; ESTIMATED GFR 84 mL/min (>60); GLUCOSE RANDOM 85 mg/dL (80-116); POTASSIUM,K 4.4 mmol/L (3.5-5.3); SODIUM,NA 135 mmol/L (135-145)
[2023-01-16] MEDS: amLODIPine 10 MG Tab PO SCH (09:12)
[2023-01-16] MEDS: Nicotine 14 MG/24 Hr Patch TRDERM SCH (09:13)
[2023-01-16] MEDS: Ibuprofen 200 MG Tab PO PRN (09:17)
[2023-01-16] MEDS: Dexamethasone/Tobramycin 0.1-0.3% Ophth Susp 2.5 ML Bottle EYEBOTH SCH ×3 (09:22→21:16)
[2023-01-16] MEDS: Levothyroxine 100 MCG Tab PO SCH (09:55)
[2023-01-16] MEDS: cefTRIAXone 1 GM Vial IVPUSH SCH (18:20)
[2023-01-16] MEDS: Sodium Chloride 0.9% 10 ML Syringe FLUSH PRN ×2 (18:20→21:26)
[2023-01-16] MEDS ORDERED: VANCOmycin 1 GM/200 ML 1 GM in Premix Bag 1 BAG IV SCH (21:00)
[2023-01-16] MEDS: Enoxaparin 40 MG/0.4 ML Syringe SUBCUT SCH (21:15)
[2023-01-17] MEDS: Ibuprofen 200 MG Tab PO PRN (00:40)
[2023-01-17 06:40] LABS: BASOPHILS PERCENT AUTO 0.5 % (0.2-1.5); EOSINOPHILS ABSOLUTE AUTO 0.1 x10-3/uL (0.0-0.8); EOSINOPHILS PERCENT AUTO 2.4 % (0.6-8.1); HEMATOCRIT 33.8 % (34.2-48.2); HEMOGLOBIN 11.2 g/dL (11.4-15.5); LYMPHOCYTES ABSOLUTE AUTO 1.5 x10-3/uL (1.0-4.4); LYMPHOCYTES PERCENT AUTO 28.1 % (18.4-52.1); MEAN CORPUSCULAR HEMOGLOBIN 26.6 pg (23.9-33.9); MEAN CORPUSCULAR HGB CONC 33.3 g/dL (31.9-34.8); MEAN CORPUSCULAR VOLUME 79.7 fL (76.7-100.5); MEAN PLATELET VOLUME 6.1 fL (7.1-12.4); MONOCYTES ABSOLUTE AUTO 0.2 x10-3/uL (0.3-1.0); MONOCYTES PERCENT AUTO 3.9 % (4.4-15.7); NEUTROPHILS ABSOLUTE AUTO 3.4 x10-3/uL (1.5-6.3); NEUTROPHILS PERCENT AUTO 65.1 % (30.8-76.2); PLATELET COUNT,PLT 442 x10(3)uL (151-488); RED BLOOD CELL COUNT 4.23 x10(6)uL (3.60-5.20); RED CELL DISTRIBUTION WIDTH 16.4 % (12.3-16.5); WHITE BLOOD CELL COUNT,WBC 5.2 x10-3/uL (3.0-10.3)
[2023-01-17 06:47] LABS: BLOOD UREA NITROGEN,BUN 17 mg/dL (7-18); BUN/CREATININE RATIO 18.9 (9-20); CALCIUM 8.6 mg/dL (8.6-10.2); CARBON DIOXIDE,CO2 29 mmol/L (21-32); CHLORIDE,CL 99 mmol/L (100-110); CREATININE 0.9 mg/dL (0.55-1.02); EST CRCL DRUG DOSING (CG) 39.66 mL/min; ESTIMATED GFR 73 mL/min (>60); GLUCOSE RANDOM 90 mg/dL (80-116); POTASSIUM,K 4.4 mmol/L (3.5-5.3); SODIUM,NA 134 mmol/L (135-145)
[2023-01-17] MEDS: Nicotine 14 MG/24 Hr Patch TRDERM SCH (08:36)
[2023-01-17 08:37] VITALS: BP 141/81
[2023-01-17] MEDS: Dexamethasone/Tobramycin 0.1-0.3% Ophth Susp 2.5 ML Bottle EYEBOTH SCH (08:37)
[2023-01-17] MEDS: amLODIPine 10 MG Tab PO SCH (08:37)
[2023-01-17] MEDS ORDERED: NICOTINE PATCH TRDERM SCH (09:00)
[2023-01-17 10:49] VITALS: PULSE 74
== END 2023-01-17 10:07 | disposition home or self-care (01) | DRG 603 ==
LOC: FB.ED 14:29 → FB.MS 18:28
PROVIDERS: ADMIT Emergency Medicine; ATTEND Family Medicine
DX: L03.213 Periorbital cellulitis (principal); Z68.1 Body mass index [BMI] 19.9 or less, adult; E87.1 Hypo-osmolality and hyponatremia; R62.7 Adult failure to thrive; F19.10 Other psychoactive substance abuse, uncomplicated; I10 Essential (primary) hypertension; E03.9 Hypothyroidism, unspecified; E83.51 Hypocalcemia; M06.9 Rheumatoid arthritis, unspecified; E86.0 Dehydration; H10.89 Other conjunctivitis; F17.210 Nicotine dependence, cigarettes, uncomplicated; J44.9 Chronic obstructive pulmonary disease, unspecified; K21.9 Gastro-esophageal reflux disease without esophagitis; M19.90 Unspecified osteoarthritis, unspecified site; F41.9 Anxiety disorder, unspecified; F32.A Depression, unspecified; Z91.030 Bee allergy status; Z98.890 Other specified postprocedural states; Z88.0 Allergy status to penicillin; Z88.8 Allergy status to other drugs, medicaments and biological substances
CPT/HCPCS: 36415; 70487; 80048; 80053; 80202; 80307; 81001; 83605; 84443; 85025; 87040; 87651-QW; 99222; 99232; 99239; 99285; A9270-GY; J0696; J1650; J3370; J3490; J7050; Q9967

== ENCOUNTER 2023-03-22 15:10 | Emergency (ER) | payer MEDICAID, MEDICARE ==
[2023-03-22] MEDS ORDERED: Sodium Chloride 0.9% 10 ML Syringe FLUSH PRN (15:33)
[2023-03-22 15:52] LABS: BASOPHILS PERCENT AUTO 0.6 % (0.2-1.5); EOSINOPHILS PERCENT AUTO 0.9 % (0.6-8.1); HEMATOCRIT 33.7 % (34.2-48.2); LYMPHOCYTES ABSOLUTE AUTO 1.4 x10-3/uL (1.0-4.4); LYMPHOCYTES PERCENT AUTO 24.4 % (18.4-52.1); MEAN CORPUSCULAR HEMOGLOBIN 25.8 pg (23.9-33.9); MEAN CORPUSCULAR HGB CONC 32.8 g/dL (31.9-34.8); MEAN CORPUSCULAR VOLUME 78.7 fL (76.7-100.5); MEAN PLATELET VOLUME 6.2 fL (7.1-12.4); MONOCYTES ABSOLUTE AUTO 0.2 x10-3/uL (0.3-1.0); MONOCYTES PERCENT AUTO 3.2 % (4.4-15.7); NEUTROPHILS ABSOLUTE AUTO 4.1 x10-3/uL (1.5-6.3); NEUTROPHILS PERCENT AUTO 70.9 % (30.8-76.2); PLATELET COUNT,PLT 471 x10(3)uL (151-488); RED BLOOD CELL COUNT 4.28 x10(6)uL (3.60-5.20); RED CELL DISTRIBUTION WIDTH 16.2 % (12.3-16.5); WHITE BLOOD CELL COUNT,WBC 5.8 x10-3/uL (3.0-10.3)
[2023-03-22 15:56] LABS: BLOOD UREA NITROGEN,BUN 14 mg/dL (7-18); BUN/CREATININE RATIO 17.5 (9-20); CALCIUM 8.1 mg/dL (8.6-10.2); CARBON DIOXIDE,CO2 26 mmol/L (21-32); CHLORIDE,CL 101 mmol/L (100-110); CREATININE 0.8 mg/dL (0.55-1.02); ESTIMATED GFR 84 mL/min (>60); GLUCOSE RANDOM 76 mg/dL (80-116); POTASSIUM,K 4.2 mmol/L (3.5-5.3); SODIUM,NA 135 mmol/L (135-145)
[2023-03-22 16:01] LABS: A/G RATIO 0.8; ALANINE AMINOTRANSFERASE,ALT 24 U/L (12-36); ALBUMIN 3.2 g/dL (3.2-4.6); ALKALINE PHOSPHATASE 71 IU/L (56-112); ASPARTATE AMNIOTRANSFERASE,AST 35 IU/L (5-25); BILIRUBIN TOTAL 0.2 mg/dL (0.1-1.3); MAGNESIUM 2.1 mg/dL (1.8-2.5); PROTEIN TOTAL,TP 7.2 g/dL (6.0-8.0)
[2023-03-22 16:04] LABS: ETHANOL BLOOD MEDICAL < 0.03 % (<0.03)
[2023-03-22 17:37] VITALS: BP 166/91; PULSE 70
== END 2023-03-22 16:55 | disposition left against medical advice (07) ==
LOC: FB.ED 15:30
DX: R07.9 Chest pain, unspecified (principal); I10 Essential (primary) hypertension; J44.9 Chronic obstructive pulmonary disease, unspecified; M06.9 Rheumatoid arthritis, unspecified; E03.9 Hypothyroidism, unspecified; Z88.0 Allergy status to penicillin; Z88.5 Allergy status to narcotic agent; Z91.030 Bee allergy status; Z79.82 Long term (current) use of aspirin; Z79.899 Other long term (current) drug therapy
CPT/HCPCS: 36415; 80053; 80307; 83735; 84484; 85025; 93005; 99285

== ENCOUNTER 2023-10-25 20:06 | Emergency (ER) | payer MEDICARE ==
[2023-10-25 20:52] LABS: HEMATOCRIT 35.5 % (34.2-48.2); HEMOGLOBIN 11.7 g/dL (11.4-15.5); MEAN CORPUSCULAR VOLUME 78.9 fL (76.7-100.5); MEAN PLATELET VOLUME 6.6 fL (7.1-12.4); PLATELET COUNT,PLT 388 x10(3)uL (151-488); WHITE BLOOD CELL COUNT,WBC 7.4 x10-3/uL (3.0-10.3)
[2023-10-25 20:56] LABS: BLOOD UREA NITROGEN,BUN 17 mg/dL (7-18); BUN/CREATININE RATIO 18.9 (9-20); CALCIUM 8.2 mg/dL (8.6-10.2); CARBON DIOXIDE,CO2 22 mmol/L (21-32); CHLORIDE,CL 91 mmol/L (100-110); CREATININE 0.9 mg/dL (0.55-1.02); ESTIMATED GFR 72 mL/min (>60); GLUCOSE RANDOM 99 mg/dL (80-116); POTASSIUM,K 3.6 mmol/L (3.5-5.3); SODIUM,NA 125 mmol/L (135-145)
[2023-10-25 21:06] LABS: A/G RATIO 0.8; ALANINE AMINOTRANSFERASE,ALT 17 U/L (12-36); ALBUMIN 3.3 g/dL (3.2-4.6); ALKALINE PHOSPHATASE 72 IU/L (56-112); ASPARTATE AMNIOTRANSFERASE,AST 24 IU/L (5-25); BILIRUBIN TOTAL 0.5 mg/dL (0.1-1.3); MAGNESIUM 2.2 mg/dL (1.8-2.5); PROTEIN TOTAL,TP 7.7 g/dL (6.0-8.0)
[2023-10-25] MEDS: Acetaminophen 500 MG Tab PO ONE (21:15)
[2023-10-25 21:17] LABS: LYMPHOCYTES PERCENT MAN 8 % (13-37); MONOCYTES PERCENT MAN 2 % (4-12); SEG NEUTROPHILS PERCENT MAN 90 % (46-82)
[2023-10-25 21:20] LABS: CORONAVIRUS COVID-19 NAA NEGATIVE (NEGATIVE); INFLUENZA A NAA NEGATIVE (NEGATIVE); INFLUENZA B NAA NEGATIVE (NEGATIVE); RESPIRATORY SYNCYTIAL VIR NAA NEGATIVE (NEGATIVE)
[2023-10-25] MEDS: Sodium Chloride 0.9% 10 ML Syringe FLUSH PRN (21:30)
[2023-10-25] MEDS: Sodium Chloride 0.9% 500 ML IV ONE (21:30)
[2023-10-25] MEDS: cefTRIAXone 1 GM Vial IVPUSH ONE (23:23)
[2023-10-25] MEDS: Doxycycline 100 MG in Sodium Chloride 0.9% 100 ML IV ONE (23:26)
[2023-10-26 01:43] LABS: BILIRUBIN,URINE NEGATIVE (NEGATIVE); GLUCOSE,URINE NORMAL (NORMAL); KETONES,URINE 15 mg/dL (NEGATIVE); LEUKOCYTE ESTERASE,URINE MODERATE (NEGATIVE); NITRITE,URINE NEGATIVE (NEGATIVE); OCCULT BLOOD,URINE MODERATE (NEGATIVE); PROTEIN,URINE TRACE mg/dL (NEGATIVE); UROBILINOGEN,URINE NORMAL (NEGATIVE)
[2023-10-26 01:46] LABS: APPEARANCE,URINE CLEAR (CLEAR); BACTERIA,URINE FEW (NS); COLOR,URINE YELLOW (YELLOW); SQUAMOUS EPITHELIAL CELLS,UR OCCASIONAL (NS,R,O)
[2023-10-26] MEDS ORDERED: Naloxone 0.4 MG/ML SDV IVPUSH PRN (01:54)
[2023-10-26] MEDS: Morphine 4 MG/ML VIAL IVPUSH ONE (02:07)
[2023-10-26] MEDS: Ondansetron 4 MG/2 ML SDV IVPUSH ONE (02:09)
[2023-10-26] MEDS: Diphtheria,Pertussis(Acell),Tetanus Vaccine 0.5 ML Syringe IM ONE (02:56)
[2023-10-26] MEDS: Sodium Chloride 0.9% 1,000 ML IV SCH (02:58)
[2023-10-26 03:30] VITALS: BP 152/92; PULSE 61
== END 2023-10-26 03:10 ==
LOC: FB.ED 20:06
DX: S61.255A Open bite of left ring finger without damage to nail, initial encounter (principal); A28.0 Pasteurellosis; E87.1 Hypo-osmolality and hyponatremia; R65.10 Systemic inflammatory response syndrome (SIRS) of non-infectious origin without acute organ dysfunction; J18.9 Pneumonia, unspecified organism; F17.200 Nicotine dependence, unspecified, uncomplicated; I10 Essential (primary) hypertension; J44.89 Other specified chronic obstructive pulmonary disease; K21.9 Gastro-esophageal reflux disease without esophagitis; Z91.030 Bee allergy status; Z88.0 Allergy status to penicillin; Z88.6 Allergy status to analgesic agent; Z79.899 Other long term (current) drug therapy; Z86.19 Personal history of other infectious and parasitic diseases; Z23 Encounter for immunization; W55.01XA Bitten by cat, initial encounter
CPT/HCPCS: 0241U; 36415; 71045; 73130-LT; 80053; 81001; 83605; 83735; 85025; 86140; 87040; 87086; 90471; 90715; 96361; 96365; 96375; 99285; 99285-25; A9270-GY; J0696; J2270; J2405; J3490; J7030; J7040

== ENCOUNTER 2024-05-21 11:35 | Emergency (ER) | payer MEDICARE ==
[2024-05-21] MEDS ORDERED: Sodium Chloride 0.9% 10 ML Syringe FLUSH PRN (11:42)
[2024-05-21 12:46] LABS: BASOPHILS ABSOLUTE AUTO 0.1 x10-3/uL (0.0-0.1); EOSINOPHILS PERCENT AUTO 0.7 % (0.6-8.1); HEMATOCRIT 41.4 % (34.2-48.2); HEMOGLOBIN 13.8 g/dL (11.4-15.5); LYMPHOCYTES ABSOLUTE AUTO 1.8 x10-3/uL (1.0-4.4); MEAN CORPUSCULAR HEMOGLOBIN 26.9 pg (23.9-33.9); MEAN CORPUSCULAR HGB CONC 33.3 g/dL (31.9-34.8); MEAN CORPUSCULAR VOLUME 80.7 fL (76.7-100.5); MEAN PLATELET VOLUME 6.8 fL (7.1-12.4); MONOCYTES ABSOLUTE AUTO 0.3 x10-3/uL (0.3-1.0); MONOCYTES PERCENT AUTO 3.6 % (4.4-15.7); NEUTROPHILS ABSOLUTE AUTO 4.9 x10-3/uL (1.5-6.3); NEUTROPHILS PERCENT AUTO 69.7 % (30.8-76.2); PLATELET COUNT,PLT 438 x10(3)uL (151-488); RED BLOOD CELL COUNT 5.13 x10(6)uL (3.60-5.20); RED CELL DISTRIBUTION WIDTH 16.4 % (12.3-16.5)
[2024-05-21] MEDS: Labetalol 20 MG/4 ML Syringe IVPUSH ONE (12:58)
[2024-05-21 13:06] LABS: BLOOD UREA NITROGEN,BUN 11 mg/dL (7-18); BUN/CREATININE RATIO 12.2 (9-20); CALCIUM 8.6 mg/dL (8.6-10.2); CARBON DIOXIDE,CO2 29 mmol/L (21-32); CHLORIDE,CL 100 mmol/L (100-110); CREATININE 0.9 mg/dL (0.55-1.02); ESTIMATED GFR 72 mL/min (>60); GLUCOSE RANDOM 81 mg/dL (80-116); POTASSIUM,K 3.9 mmol/L (3.5-5.3); SODIUM,NA 137 mmol/L (135-145)
[2024-05-21 13:08] LABS: TROPONIN I 25.4 pg/mL (4.0-60.3)
[2024-05-21 13:11] LABS: A/G RATIO 0.9; ALANINE AMINOTRANSFERASE,ALT 25 U/L (12-36); ALBUMIN 3.9 g/dL (3.2-4.6); ALKALINE PHOSPHATASE 75 IU/L (56-112); ASPARTATE AMNIOTRANSFERASE,AST 31 IU/L (5-25); BILIRUBIN TOTAL 0.4 mg/dL (0.1-1.3); PROTEIN TOTAL,TP 8.4 g/dL (6.0-8.0)
[2024-05-21 13:59] VITALS: BP 214/104; PULSE 77
== END 2024-05-21 14:30 | disposition home or self-care (01) ==
LOC: FB.ED 11:35
DX: I16.9 Hypertensive crisis, unspecified (principal); H10.9 Unspecified conjunctivitis; I10 Essential (primary) hypertension; J44.9 Chronic obstructive pulmonary disease, unspecified; F17.210 Nicotine dependence, cigarettes, uncomplicated; Z79.82 Long term (current) use of aspirin; Z88.0 Allergy status to penicillin; Z88.5 Allergy status to narcotic agent; Z91.030 Bee allergy status
CPT/HCPCS: 36415; 70450; 71045; 80053; 83880; 84484; 85025; 93005; 93010; 96374; 99284; J1920

== ENCOUNTER 2025-05-16 14:37 | Emergency (ER) | payer MEDICARE ==
[2025-05-16 15:02] VITALS: BP 148/110; PULSE 74
== END 2025-05-16 16:50 | disposition home or self-care (01) ==
LOC: FB.ED 14:37
DX: H04.123 Dry eye syndrome of bilateral lacrimal glands (principal); I10 Essential (primary) hypertension; J44.89 Other specified chronic obstructive pulmonary disease; E03.9 Hypothyroidism, unspecified; Z79.82 Long term (current) use of aspirin; Z91.030 Bee allergy status; Z88.0 Allergy status to penicillin; Z88.5 Allergy status to narcotic agent; Z79.899 Other long term (current) drug therapy
CPT/HCPCS: 99283

== ENCOUNTER 2025-05-27 15:34 | Emergency (ER) | payer MEDICARE ==
[2025-05-27 15:52] VITALS: BP 145/99; PULSE 83
== END 2025-05-27 16:48 | disposition home or self-care (01) ==
LOC: FB.ED 15:34
DX: H10.33 Unspecified acute conjunctivitis, bilateral (principal); Z76.0 Encounter for issue of repeat prescription; J44.89 Other specified chronic obstructive pulmonary disease; I10 Essential (primary) hypertension; E03.9 Hypothyroidism, unspecified; K21.9 Gastro-esophageal reflux disease without esophagitis; F17.200 Nicotine dependence, unspecified, uncomplicated; Z91.030 Bee allergy status; Z88.0 Allergy status to penicillin; Z88.5 Allergy status to narcotic agent; Z79.899 Other long term (current) drug therapy; Z79.82 Long term (current) use of aspirin
CPT/HCPCS: 99282